=== PATIENT | male | born 1935 | race African-American/Black ===

== ENCOUNTER 2019-08-21 11:59 | Emergency (ER) | payer MEDICARE ==
--- NOTE | 2019-08-21 12:40 | Emergency Department Report ---
Blank Doc - Documentation Documentation: 83-year-old male that presents with not eating and fatigue. Daughter stated p julianne has some confusion. This initial assessment/diagnostic orders/clinical plan/treatment(s) is/are subject to change based on patient's health status, clinical progression and re- assessment by fellow clinical providers in the ED. Further treatment and workup at subsequent clinical providers discretion. Patient/guardians urged not to elope from the ED as their condition may be serious if not clinically assessed and managed. Initial orders include: 1- Patient sent to MAIN for further evaluation and treatment 2- labs 3- EKG 4- UA 5 CT head
--- NOTE | 2019-08-21 13:31 | XRay Report ---
CHEST 2 VIEWS INDICATION: Chest Pain. COMPARISON: None. FINDINGS: Support devices: None. Heart: Within normal limits. Pulmonary vasculature: Normal. Lungs/pleura: No acute air space or interstitial disease. No pneumothorax. Additional findings: Degenerative change in the spine. IMPRESSION: 1. No acute findings. Signer Name: David Hernandez MD Signed: 08/21/2019 1:27 PM Workstation Name: [id number]
[2019-08-21 14:22] LABS: Mean Corpuscular HGB Conc 33 % (32-34); Mean Corpuscular Volume 90 fl (84-94); Platelet Count 267 K/mm3 (140-440); Red Blood Count 3.99 M/mm3 (3.65-5.03); Red Cell Distribution Width 13.4 % (13.2-15.2)
[2019-08-21 14:31] LABS: INR 0.98 (0.87-1.13)
--- NOTE | 2019-08-21 14:52 | Cat Scan Report ---
NONENHANCED CT SCAN OF THE HEAD: INDICATION / CLINICAL INFORMATION: 83 years Male; confusion/fatigue. TECHNIQUE: Routine CT head without contrast. All CT scans at this location are performed using CT dos e reduction for ALARA by means of automated exposure control. COMPARISON: None. FINDINGS: BRAIN / INTRACRANIAL CONTENTS: No acute hemorrhage, mass effect, midline shift, hydrocephalus, or ac round [place], large territorial infarct. No chronic infarct or focal encephalomalacia. Periventricular low att enuation areas are seen probably due to microvascular faint angiopathy. Cerebral cerebellar and deep central involutions are seen. Temporal horn tips suggest moderate volume loss. CRANIOCERVICAL JUNCTION: No significant abnormality. ORBITS: No significant abnormality of visualized orbits. SINUSES / MASTOIDS: No significant abnormality of the visualized paranasal sinuses or mastoid air kamila ls. ADDITIONAL FINDINGS: None. IMPRESSION: No focal parenchymal lesion in the brain. Signer Name: Edward Amezcua MD Signed: 08/21/2019 2:47 PM Workstation Name: [id number]
[2019-08-21 15:04] LABS: Alanine Aminotransferase 11 units/L (7-56); Albumin 3.5 g/dL (3.9-5); BUN/Creatinine Ratio 51; Blood Urea Nitrogen 46 mg/dL (9-20); Calcium 9.5 mg/dL (8.4-10.2); Hemolysis Index 4
[2019-08-21 15:12] LABS: Bacteria,Urine 1+ /HPF (Negative); Bilirubin,Urine NEG (Negative); Blood,Urine MOD (Negative); Color,Urine Yellow (Yellow); Mucus,Urine FEW /HPF; Urobilinogen,Urine < 2.0 mg/dL (<2.0)
[2019-08-21 16:08] LABS: Eosinophils % (Manual) 0 % (0.0-4.3); Monocytes % (Manual) 0 % (0.0-7.3); Total Cells Counted 100
[2019-08-21 16:09] LABS: Platelet Estimate Consistent w Auto; RBC Morphology Normal
[2019-08-21] MEDS ORDERED: NITROFURANTOIN MONOHYD/M-CRYST 100 MG CAP PO ONE (18:33)
[2019-08-21] MEDS ORDERED: INSULIN REGULAR, HUMAN 100 UNITS/1 ML IV ONE ×2 (18:33→19:52)
[2019-08-21] MEDS ORDERED: SODIUM CHLORIDE 0.9% 250ML 250 ML IV ONE (18:34)
--- NOTE | 2019-08-21 18:34 | Emergency Department Report ---
ED General Adult HPI - General Chief complaint: Medical Clearance Stated complaint: DIABETIC/NO EATING OR DRINKING Time Seen by Provider: 08/21/19 12:38 Source: patient, family, RN notes reviewed, old records reviewed Mode of arrival: Wheelchair Limitations: Language Barrier - History of Present Illness Initial comments: Primary care doctors: Dr. Doyle, Dr. Martin The patient is an 83-year-old gentleman with a history of diabetes, hypertension, reportedly takes Lantus and Humulin. He is accompanied by his daughter, who requested to provide the history and translates for the patient. A formal logging crew supervisor was offered, and patient and family declined. As per the patient's daughter, patient has been having "memory issues", for the past 3-5 years. Over the past week or so, the patient has been eating less, and has been having worsening memory issues. The patient denies physical pain. The daughter indicates the patient is not eating as much as she typically eats. The daughter indicates that the patient's medications have not been changed or adjusted. As per the daughter, and the patient, there is no complaint of physical pain. There is no complaint of fever, vomiting, diarrhea, dysuria, chest pain, cough, and/or focal extremity weakness. Symptoms are intermittent, and worsening over the past week or so, symptoms including decreased appetite, and generalized confusion. The patient does not have recollection of this, he denies physical pain, and is asking to go home. -: Gradual Quality: other Consistency: other Improves with: other Worsens with: other - Related Data Previous Rx's Medication Instructions Recorded Last Taken Type Insulin Glargine,Hum.rec.anlog 20 unit SQ QHS #1 pen 08/21/13 Unknown Rx [Lantus Solostar] Insulin Lispro [Humalog] 5 unit SQ TIDAC #1 pen 08/21/13 Unknown Rx Losartan [Cozaar] 100 mg PO QDAY #30 tablet 08/21/13 Unknown Rx Nitrofurantoin Summers/M-Cryst 100 mg PO Q12HR #13 capsule 08/21/19 Unknown Rx [Macrobid CAP] Allergies Allergy/AdvReac Type Severity Reaction Status Date / Time No Known Allergies Allergy Unverified 08/21/13 10:19 ED Review of Systems ROS: Stated complaint: DIABETIC/NO EATING OR DRINKING Other details as noted in HPI Constitutional: denies: fever Eyes: denies: eye discharge ENT: denies: congestion Respiratory: denies: cough, wheezing Cardiovascular: denies: chest pain, syncope Gastrointestinal: denies: abdominal pain, nausea, vomiting, diarrhea, con stipation, hematemesis, melena, hematochezia Musculoskeletal: denies: back pain Skin: denies: lesions Neurological: confusion Hematological/Lymphatic: denies: easy bleeding ED Past Medical Hx - Past Medical History Previous Medical History?: Yes Hx Diabetes: Yes - Social History Smoking Status: Never Smoker - Medications Home Medications: Home Medications Medication Instructions Recorded Confirmed Last Taken Type Insulin Glargine,Hum.rec.anlog 20 unit SQ QHS #1 pen 08/21/13 Unknown Rx [Lantus Solostar] Insulin Lispro [Humalog] 5 unit SQ TIDAC #1 pen 08/21/13 Unknown Rx Losartan [Cozaar] 100 mg PO QDAY #30 tablet 08/21/13 Unknown Rx Nitrofurantoin Summers/M-Cryst 100 mg PO Q12HR #13 capsule 08/21/19 Unknown Rx [Macrobid CAP] ED Physical Exam - General Limitations: Language Barrier, Other (during the entire history and physical examination, I am mixer whipped topping and escorted by nurse Prieto Matta) General appearance: alert, in no apparent distress, other (the patient is alert to name, location, and is able to identify his family member) - Head Head exam: Present: atraumatic, normocephalic - Eye Eye exam: Absent: normal appearance (chronic appearing cataract noted on the right eye. Cataract noted on the left eye.) Pupils: Present: other (visual acuity intact to finger counting and color perception at a close distance) - ENT ENT exam: Present: normal exam, mucous membranes moist, normal external ear exam - Neck Neck exam: Present: normal inspection, full ROM - Respiratory Respiratory exam: Present: normal lung sounds bilaterally. Absent: respiratory distress - Cardiovascular Cardiovascular Exam: Present: regular rate, normal rhythm, normal heart sounds. Absent: bradycardia, tachycardia, irregular rhythm, systolic murmur, diastolic murmur, rubs, gallop - GI/Abdominal GI/Abdominal exam: Present: soft. Absent: distended, tenderness, guarding, rebound, rigid, pulsatile mass - Rectal Rectal exam: Present: deferred - Extremities Exam Extremities exam: Present: normal inspection, full ROM, other (2+ pulses noted in the bilateral upper and lower extremities. The pelvis is stable. There is no long bony tenderness. The muscular compartments are soft. There is no redness, pus, streaking or erythema.). Absent: pedal edema, calf tenderness - Back Exam Back exam: Present: normal inspection - Neurological Exam Neurological exam: Present: alert, normal gait, other (there is no facial droop. The tongue is midline. Extraocular movements are intact bilaterally. Speaking in full sentences. Hearing is grossly intact. 5 out of 5 strength bilateral upper and lower extremities. Sensation is intact to light touch bilateral upper and lower extremities.). Absent: motor sensory deficit - Psychiatric Psychiatric exam: Present: normal affect, normal mood - Skin Skin exam: Present: warm, dry, intact, normal color. Absent: rash ED Course Vital Signs 08/21/19 08/21/19 08/21/19 12:16 18:05 18:24 Temperature 98.2 F Pulse Rate 85 58 L 93 H Respiratory 18 16 16 Rate Blood Pressure 103/54 Blood Pressure 101/48 [Right] O2 Sat by Pulse 96 96 96 Oximetry 08/21/19 08/21/19 08/21/19 18:31 18:45 19:01 Temperature Pulse Rate 80 76 76 Respiratory 16 15 18 Rate Blood Pressure 165/76 165/76 165/76 Blood Pressure [Right] O2 Sat by Pulse 97 98 99 Oximetry 08/21/19 08/21/19 08/21/19 19:15 19:31 19:45 Temperature Pulse Rate 84 80 78 Respiratory 19 11 L 20 Rate Blood Pressure 163/76 190/79 190/79 Blood Pressure [Right] O2 Sat by Pulse 97 96 97 Oximetry 08/21/19 08/21/19 08/21/19 20:01 20:15 20:31 Temperature Pulse Rate 76 74 78 Respiratory 19 23 15 Rate Blood Pressure 163/76 163/76 163/76 Blood Pressure [Right] O2 Sat by Pulse 97 98 97 Oximetry 08/21/19 08/21/19 08/21/19 20:45 21:01 21:15 Temperature Pulse Rate 74 77 77 Respiratory 21 26 H 21 Rate Blood Pressure 163/76 163/76 136/75 Blood Pressure [Right] O2 Sat by Pulse 95 97 93 Oximetry - Reevaluation(s) Reevaluation #1: 08/21/19 19:24 Differential diagnosis, including but not limited to: Dementia, intracranial hemorrhage/acute lesion, pneumonia, urinary tract infection, thyroid derangement Assessment and plan: 83-year-old gentleman with daughter and , family provides history of 3-5 years of memory issues, now with complaint of worsening memory issues, and not eating as much as she typically eats. The patient is pleasant, calm and cooperative, he is afebrile with reassuring vital signs, tolerating liquid feeds, and answers many questions, including being able to list both of his insulin medications, giving his full name, identifying his daughter by name, and indicating that he knows he is at the hospital. He does this in Korean. He denies physical pain at this time. His laboratory studies are reviewed and appreciated. Mild dehydration and hyperglycemia noted, questionable cystitis suggested on urinary analysis. Given reported history of memory issues for years, this is likely undiagnosed or inadequately managed dementia. Patient will be given IV fluids, insulin, Macrobid, he is observed in this department for hours without clinical decompensation. Extensive discussion had with daughter regarding need to follow up with outpatient primary care doctor, we will need to clarify goals of care, and his memory issues can be further just as an outpatient. At the moment, the patient does not have an emergent medical condition that would require hospitalization. Reevaluation #2: 08/21/19 20:50 Accu-Chek improved to 238. Patient in no acute distress. Patient observed in this department for nearly 9 hours without clinical decompensation. Poni to follow-up with his outpatient primary care doctor for presumed dementia, and to clarify long-term goals of care. ED Medical Decision Making - Lab Data Result diagrams: 08/21/19 13:43 08/21/19 13:43 Vital Signs 08/21/19 08/21/19 12:16 18:05 Temperature 98.2 F Pulse Rate 85 58 L Respiratory 18 16 Rate Blood Pressure 103/54 Blood Pressure 101/48 [Right] O2 Sat by Pulse 96 96 Oximetry Lab Results 08/21/19 08/21/19 08/21/19 Range/Units 12:52 13:43 13:43 WBC 12.2 H (4.5-11.0) K/mm3 RBC 3.99 (3.65-5.03) M/mm3 Hgb 12.0 (11.8-15.2) gm/dl Hct 36.0 (35.5-45.6) % MCV 90 (84-94) fl MCH 30 (28-32) pg MCHC 33 (32-34) % RDW 13.4 (13.2-15.2) % Plt Count 267 (140-440) K/mm3 Add Manual Diff Complete Total Counted 100 Seg Neutrophils % [facility] Licensed Practical Nurse Seg Neuts % (Manual) 96.0 H (40.0-70.0) % Band Neutrophils % 0 % Lymphocytes % (Manual) 3.0 L (13.4-35.0) % Reactive Lymphs % (Man) 0 % Monocytes % (Manual) 0 (0.0-7.3) % Eosinophils % (Manual) 0 (0.0-4.3) % Basophils % (Manual) 1.0 (0.0-1.8) % Metamyelocytes % 0 % Myelocytes % 0 % Promyelocytes % 0 % Blast Cells % 0 % Nucleated RBC % Not Reportable Seg Neutrophils # Man 11.7 H (1.8-7.7) K/mm3 Band Neutrophils # 0.0 K/mm3 Lymphocytes # (Manual) 0.4 L (1.2-5.4) K/mm3 Abs React Lymphs (Man) 0.0 K/mm3 Monocytes # (Manual) 0.0 (0.0-0.8) K/mm3 Eosinophils # (Manual) 0.0 (0.0-0.4) K/mm3 Basophils # (Manual) 0.1 (0.0-0.1) K/mm3 Metamyelocytes # 0.0 K/mm3 Myelocytes # 0.0 K/mm3 Promyelocytes # 0.0 K/mm3 Blast Cells # 0.0 K/mm3 WBC Morphology Not Reportable Hypersegmented Neuts Not Reportable Hyposegmented Neuts Not Reportable Hypogranular Neuts Not Reportable Smudge Cells Not Reportable Toxic Granulation Not Reportable Toxic Vacuolation Not Reportable Dohle Bodies Not Reportable Pelger-Huet Anomaly Not Reportable Michael Rods Not Reportable Platelet Estimate Consistent w auto Clumped Platelets Not Reportable Plt Clumps, EDTA Not Reportable Large Platelets Not Reportable Giant Platelets Not Reportable Platelet Satelliting Not Reportable Plt Morphology Comment Not Reportable RBC Morphology Normal Dimorphic RBCs Not Reportable Polychromasia Not Reportable Hypochromasia Not Reportable Poikilocytosis Not Reportable Anisocytosis Not Reportable Microcytosis Not Reportable Macrocytosis Not Reportable Spherocytes Not Reportable Pappenheimer Bodies Not Reportable Sickle Cells Not Reportable Target Cells Not Reportable Tear Drop Cells Not Reportable Ovalocytes Not Reportable Helmet Cells Not Reportable [place] Bodies Not Reportable Liberty Rings Not Reportable [place] Cells Not Reportable Bite Cells Not Reportable Crenated Cell Not Reportable Elliptocytes Not Reportable Acanthocytes (Spur) Not Reportable Rouleaux Not Reportable Hemoglobin C Crystals Not Reportable Schistocytes Not Reportable Malaria parasites Not Reportable Natalio Bodies Not Reportable Hem Pathologist Commnt No PT 13.1 (12.2-14.9) Sec. INR 0.98 (0.87-1.13) APTT 32.0 (24.2-36.6) Sec. VBG pH (7.320-7.420) Sodium (137-145) mmol/L Potassium (3.6-5.0) mmol/L Chloride (98-107) mmol/L Carbon Dioxide (22-30) mmol/L Anion Gap mmol/L BUN (9-20) mg/dL Creatinine (0.8-1.5) mg/dL Estimated GFR ml/min BUN/Creatinine Ratio % Glucose (75-100) mg/dL POC Glucose 408 H (70-105) Calcium (8.4-10.2) mg/dL Magnesium (1.7-2.3) mg/dL Total Bilirubin (0.1-1.2) mg/dL AST (5-40) units/L ALT (7-56) units/L Alkaline Phosphatase (35-129) units/L Total Creatine Kinase (55-170) units/L Troponin T (0.00-0.029) ng/mL Total Protein (6.3-8.2) g/dL Albumin (3.9-5) g/dL Albumin/Globulin Ratio % Urine Color (Yellow) Urine Turbidity (Clear) Urine pH (5.0-7.0) Ur Specific [place] (1.003-1.030) Urine Protein (Negative) mg/dL Urine Glucose (UA) (Negative) mg/dL Urine Ketones (Negative) mg/dL Urine Blood (Negative) Urine Nitrite (Negative) Urine Bilirubin (Negative) Urine Urobilinogen (<2.0) mg/dL Ur Leukocyte Esterase (Negative) Urine WBC (Auto) (0.0-6.0) /HPF Urine RBC (Auto) (0.0-6.0) /HPF U Epithel Cells (Auto) (0-13.0) /HPF Urine Bacteria (Auto) (Negative) /HPF Urine Mucus /HPF Urine Yeast (Budding) /HPF 08/21/19 08/21/19 08/21/19 Range/Units 13:43 13:43 15:55 WBC (4.5-11.0) K/mm3 RBC (3.65-5.03) M/mm3 Hgb (11.8-15.2) gm/dl Hct (35.5-45.6) % MCV (84-94) fl MCH (28-32) pg MCHC (32-34) % RDW (13.2-15.2) % Plt Count (140-440) K/mm3 Add Manual Diff Total Counted Seg Neutrophils % Seg Neuts % (Manual) (40.0-70.0) % Band Neutrophils % % Lymphocytes % (Manual) (13.4-35.0) % Reactive Lymphs % (Man) % Monocytes % (Manual) (0.0-7.3) % Eosinophils % (Manual) (0.0-4.3) % Basophils % (Manual) (0.0-1.8) % Metamyelocytes % % Myelocytes % % Promyelocytes % % Blast Cells % % Nucleated RBC % Seg Neutrophils # Man (1.8-7.7) K/mm3 Band Neutrophils # K/mm3 Lymphocytes # (Manual) (1.2-5.4) K/mm3 Abs React Lymphs (Man) K/mm3 Monocytes # (Manual) (0.0-0.8) K/mm3 Eosinophils # (Manual) (0.0-0.4) K/mm3 Basophils # (Manual) (0.0-0.1) K/mm3 Metamyelocytes # K/mm3 Myelocytes # K/mm3 Promyelocytes # K/mm3 Blast Cells # K/mm3 WBC Morphology Hypersegmented Neuts Hyposegmented Neuts Hypogranular Neuts Smudge Cells Toxic Granulation Toxic Vacuolation Dohle Bodies Pelger-Huet Anomaly Michael Rods Platelet Estimate Clumped Platelets Plt Clumps, EDTA Large Platelets Giant Platelets Platelet Satelliting Plt Morphology Comment RBC Morphology Dimorphic RBCs Polychromasia Hypochromasia Poikilocytosis Anisocytosis Microcytosis Macrocytosis Spherocytes Pappenheimer Bodies Sickle Cells Target Cells Tear Drop Cells Ovalocytes Helmet Cells [place] Bodies Liberty Rings Risa Cells Bite Cells Crenated Cell Elliptocytes Acanthocytes (Spur) Rouleaux Hemoglobin C Crystals Schistocytes Malaria parasites Natalio Bodies Hem Pathologist Commnt PT (12.2-14.9) Sec. INR (0.87-1.13) APTT (24.2-36.6) Sec. VBG pH 7.433 H (7.320-7.420) Sodium 135 L (137-145) mmol/L Potassium 4.8 (3.6-5.0) mmol/L Chloride 93.0 L (98-107) mmol/L Carbon Dioxide 26 (22-30) mmol/L Anion Gap 21 mmol/L BUN 46 H (9-20) mg/dL Creatinine 0.9 (0.8-1.5) mg/dL Estimated GFR > 60 ml/min BUN/Creatinine Ratio 51 % Glucose 458 H (75-100) mg/dL POC Glucose (70-105) Calcium 9.5 (8.4-10.2) mg/dL Magnesium (1.7-2.3) mg/dL Total Bilirubin 0.40 (0.1-1.2) mg/dL AST 12 (5-40) units/L ALT 11 (7-56) units/L Alkaline Phosphatase 75 (35-129) units/L Total Creatine Kinase (55-170) units/L Troponin T < 0.010 < 0.010 (0.00-0.029) ng/mL Total Protein 7.1 (6.3-8.2) g/dL Albumin 3.5 L (3.9-5) g/dL Albumin/Globulin Ratio 1.0 % Urine Color (Yellow) Urine Turbidity (Clear) Urine pH (5.0-7.0) Ur Specific [place] (1.003-1.030) Urine Protein (Negative) mg/dL Urine Glucose (UA) (Negative) mg/dL Urine Ketones (Negative) mg/dL Urine Blood (Negative) Urine Nitrite (Negative) Urine Bilirubin (Negative) Urine Urobilinogen (<2.0) mg/dL Ur Leukocyte Esterase (Negative) Urine WBC (Auto) (0.0-6.0) /HPF Urine RBC (Auto) (0.0-6.0) /HPF U Epithel Cells (Auto) (0-13.0) /HPF Urine Bacteria (Auto) (Negative) /HPF Urine Mucus /HPF Urine Yeast (Budding) /HPF 08/21/19 08/21/19 Range/Units 18:53 Unknown WBC (4.5-11.0) K/mm3 RBC (3.65-5.03) M/mm3 Hgb (11.8-15.2) gm/dl Hct (35.5-45.6) % MCV (84-94) fl MCH (28-32) pg MCHC (32-34) % RDW (13.2-15.2) % Plt Count (140-440) K/mm3 Add Manual Diff Total Counted Seg Neutrophils % Seg Neuts % (Manual) (40.0-70.0) % Band Neutrophils % % Lymphocytes % (Manual) (13.4-35.0) % Reactive Lymphs % (Man) % Monocytes % (Manual) (0.0-7.3) % Eosinophils % (Manual) (0.0-4.3) % Basophils % (Manual) (0.0-1.8) % Metamyelocytes % % Myelocytes % % Promyelocytes % % Blast Cells % % Nucleated RBC % Seg Neutrophils # Man (1.8-7.7) K/mm3 Band Neutrophils # K/mm3 Lymphocytes # (Manual) (1.2-5.4) K/mm3 Abs React Lymphs (Man) K/mm3 Monocytes # (Manual) (0.0-0.8) K/mm3 Eosinophils # (Manual) (0.0-0.4) K/mm3 Basophils # (Manual) (0.0-0.1) K/mm3 Metamyelocytes # K/mm3 Myelocytes # K/mm3 Promyelocytes # K/mm3 Blast Cells # K/mm3 WBC Morphology Hypersegmented Neuts Hyposegmented Neuts Hypogranular Neuts Smudge Cells Toxic Granulation Toxic Vacuolation Dohle Bodies Pelger-Huet Anomaly Michael Rods Platelet Estimate Clumped Platelets Plt Clumps, EDTA Large Platelets Giant Platelets Platelet Satelliting Plt Morphology Comment RBC Morphology Dimorphic RBCs Polychromasia Hypochromasia Poikilocytosis Anisocytosis Microcytosis Macrocytosis Spherocytes Pappenheimer Bodies Sickle Cells Target Cells Tear Drop Cells Ovalocytes Helmet Cells [place] Bodies [place] Rings [place] Cells Bite Cells Crenated Cell Elliptocytes Acanthocytes (Spur) Rouleaux Hemoglobin C Crystals Schistocytes Malaria parasites Natalio Bodies Hem Pathologist Commnt PT (12.2-14.9) Sec. INR (0.87-1.13) APTT (24.2-36.6) Sec. VBG pH (7.320-7.420) Sodium (137-145) mmol/L Potassium (3.6-5.0) mmol/L Chloride (98-107) mmol/L Carbon Dioxide (22-30) mmol/L Anion Gap mmol/L BUN (9-20) mg/dL Creatinine (0.8-1.5) mg/dL Estimated GFR ml/min BUN/Creatinine Ratio % Glucose (75-100) mg/dL POC Glucose (70-105) Calcium (8.4-10.2) mg/dL Magnesium 2.30 (1.7-2.3) mg/dL Total Bilirubin (0.1-1.2) mg/dL AST (5-40) units/L ALT (7-56) units/L Alkaline Phosphatase (35-129) units/L Total Creatine Kinase 48 L (55-170) units/L Troponin T (0.00-0.029) ng/mL Total Protein (6.3-8.2) g/dL Albumin (3.9-5) g/dL Albumin/Globulin Ratio % Urine Color Yellow (Yellow) Urine Turbidity Slightly-cloudy (Clear) Urine pH 5.0 (5.0-7.0) Ur Specific [place] 1.024 (1.003-1.030) Urine Protein 100 mg/dl (Negative) mg/dL Urine Glucose (UA) >=500 (Negative) mg/dL Urine Ketones Tr (Negative) mg/dL Urine Blood Mod (Negative) Urine Nitrite Neg (Negative) Urine Bilirubin Neg (Negative) Urine Urobilinogen < 2.0 (<2.0) mg/dL Ur Leukocyte Esterase Sm (Negative) Urine WBC (Auto) 32.0 H (0.0-6.0) /HPF Urine RBC (Auto) 13.0 (0.0-6.0) /HPF U Epithel Cells (Auto) < 1.0 (0-13.0) /HPF Urine Bacteria (Auto) 1+ (Negative) /HPF Urine Mucus Few /HPF Urine Yeast (Budding) 1+ /HPF - EKG Data -: EKG Interpreted by Ny EKG shows normal: sinus rhythm Rate: normal - EKG Data When compared to previous EKG there are: previous EKG unavailable 08/21/19 19:23 No prior EKG is available for comparison. The EKG shows a sinus rhythm, 69 bpm, normal axis, QTC is 454 ms, there is left ventricular hypertrophy, nonspecific ST abnormality. There is no endorsement of chest pain, the EKG is abnormal. This EKG is not consistent with STEMI - Radiology Data Radiology results: report reviewed, image reviewed Print Report Referring Physician: JANICE WELLS Patient Name: BRYANT JAMISON Date of : 1935 Sex: Male Report Date: 2019-08-21 Report Status: Finalized Findings [facility] [address] [place] [address] Cat Scan Report Signed Patient: BRYANT JAMISON MR#: [id number] 63 : 1935 Acct:[id number] Age/Sex: 83 / M ADM Date: 08/21/19 Loc: ED Attending Dr: Ordering Physician: JANICE WELLS NP Date of Service: 08/21/19 Procedure(s): CT head/brain wo con Accession Number(s): [id number] cc: JANICE WELLS NP NONENHANCED CT SCAN OF THE HEAD: INDICATION / CLINICAL INFORMATION: 83 years Male; confusion/fatigue. TECHNIQUE: Routine CT head without contrast. All CT scans at this location are performed using CT dose reduction for ALARA by means of automated exposure control. COMPARISON: None. FINDINGS: BRAIN / INTRACRANIAL CONTENTS: No acute hemorrhage, mass effect, midline shift, hydrocephalus, or acute, large territorial infarct. No chronic infarct or focal encephalomalacia. Periventricular low attenuation areas are seen probably due to microvascular faint angiopathy. Cerebral cerebellar and deep central involutions are seen. Temporal horn tips suggest moderate volume loss. CRANIOCERVICAL JUNCTION: No significant abnormality. ORBITS: No significant abnormality of visualized orbits. SINUSES / MASTOIDS: No significant abnormality of the visualized paranasal sinuses or mastoid air cells. ADDITIONAL FINDINGS: None. IMPRESSION: No focal parenchymal lesion in the brain. Signer Name: Edward Amezcua MD Signed: 08/21/2019 2:47 PM Workstation Name: [id number] Transcribed By: BS Dictated By: Edward Berg MD Electronically Authenticated By: Edward Berg MD Signed Date/Time: 08/21/19 1447 DD/ 1442 Print Report Referring Physician: JANICE WELLS Patient Name: BRYANT JAMISON Date of : 1935 Sex: Male Report Date: 2019-08-21 Report Status: [place] [address] XRay Report Signed Patient: BRYANT JAMISON MR#: [id number] 63 : 1935 Acct:[id number] Age/Sex: 83 / M ADM Date: 08/21/19 Loc: ED Attending Dr: Ordering Physician: JANICE WELLS NP Date of Service: 08/21/19 Procedure(s): XR chest routine 2V Accession Number(s): [id number] cc: JANICE WELLS NP Fluoro Time In Minutes: CHEST 2 VIEWS INDICATION: Chest Pain. COMPARISON: None. FINDINGS: Support devices: None. Heart: Within normal limits. Pulmonary vasculature: Normal. Lungs/pleura: No acute air space or interstitial disease. No pneumothorax. Additional findings: Degenerative change in the spine. IMPRESSION: 1. No acute findings. Signer Name: Lolis Adams MD Signed: 08/21/2019 1:27 PM Workstation Name: [id number] Transcribed By: REF Dictated By: LOLIS ADAMS MD Electronically Authenticated By: LOLIS ADAMS MD Signed Date/Time: 08/21/19 1327 DD/ 1326 Critical care attestation.: If time is entered above; I have spent that time in minutes in the direct care of this critically ill patient, excluding procedure time. ED Disposition Clinical Impression: Hyperglycemia, Memory changes Disposition: DC-01 TO HOME OR SELFCARE Is pt being admited?: No Does the pt Need Aspirin: No Condition: Stable Instructions: Dementia (ED) Additional Instructions: As we discussed, patient likely has dementia, which is typically in irreversible condition that affects memory, cognition. We recommended the patient follow up with his outpatient primary care doctor within the next 7 days for further evaluation and management of his dementia. We recommend that the patient administer half of the insulin doses that he typically administers, given that he is reportedly not eating or drinking as much as she typically eats or drink. Cultures were sent today, and results will be available in the next 3-5 days, please have your primary care doctor contact the medical records department to obtain culture results. Take the antibiotics as directed. Please return to the emergency room right away with projectile vomiting, change in mental status, confusion, inability to tolerate liquid feeds. For the time being, the patient should not drive or operate motor vehicles, he should have an adult roofing supervisor around him at all times, and he should not be exposed to sharp objects, or electrical outlets. Patient should avoid sedating medications and alcohol consumption. Prescriptions: Nitrofurantoin Summers/M-Cryst [Macrobid CAP] 100 mg PO Q12HR #13 capsule Referrals: TERA BOCANEGRA [Other] - 3-5 Days ROBI DOYLE MD [Referring] - 3-5 Days KAMI MARTIN MD [Referring] - 3-5 Days
[2019-08-21 21:40] VITALS: BP 136/75
== END 2019-08-21 21:40 | disposition home or self-care (01) ==
LOC: ED 11:59
DX: E11.65 Type 2 diabetes mellitus with hyperglycemia (principal); R41.3 Other amnesia; Z79.899 Other long term (current) drug therapy
CPT/HCPCS: 36415; 70450; 71046; 80053; 81001; 82550; 82805; 82962; 83735; 84443; 84484; 85007; 85025; 85610; 85730; 87076; 87086; 87186; 93005; 93010; 96374; 96376; 99285; J7050; 80320; G0480; J1815

== ENCOUNTER 2019-08-28 13:00 | Inpatient (IN) | payer MEDICARE ==
[2019-08-28 13:35] LABS: Hematocrit 37.7 % (35.5-45.6); Hemoglobin 11.9 gm/dl (11.8-15.2); Mean Corpuscular HGB Conc 32 % (32-34); Mean Corpuscular Volume 95 fl (84-94); Platelet Count 385 K/mm3 (140-440); Red Blood Count 3.99 M/mm3 (3.65-5.03); Red Cell Distribution Width 13.9 % (13.2-15.2)
[2019-08-28] MEDS ORDERED: SODIUM CHLORIDE 0.9% 1000 ML 1,000 ML IV ONE (14:10)
[2019-08-28 14:11] LABS: Calcium 9.6 mg/dL (8.4-10.2)
[2019-08-28] MEDS ORDERED: CEFEPIME/NS 2 GM/100 ML 2 GM/100 ML BAG IV ONE (14:24)
--- NOTE | 2019-08-28 14:30 | XRay Report ---
CHEST 1 VIEW INDICATION: weakness. COMPARISON: 08/21/2019 FINDINGS: Support devices: None. Heart: Within normal limits. Lungs/Pleura: No acute air space or interstitial disease. Additional findings: There are multiple tiny linear soft tissue densities within the posterior thorac ic soft tissues. The etiology of these are unclear. They may represent tiny foreign bodies. These are unchanged since the exam 7 days ago. IMPRESSION: No acute findings. Signer Name: Carlyle Go Jr, MD Signed: 08/28/2019 2:25 PM Workstation Name: [id number]
[2019-08-28] MEDS ORDERED: SODIUM CHLORIDE 0.9% 1000 ML IV SOLN IV ONE (14:46)
[2019-08-28 14:48] LABS: Total Cells Counted 100
[2019-08-28 14:49] LABS: Anisocytosis Few; Basophils % (Manual) 0 % (0.0-1.8); Burr Cells Few; Eosinophils % (Manual) 0 % (0.0-4.3); Platelet Estimate Consistent w Auto
[2019-08-28] MEDS ORDERED: INSULIN REGULAR, HUMAN 100 UNITS in SODIUM CHLORIDE 0.9% 99 ML IV SCH ×4 (15:00→23:00)
[2019-08-28] MEDS ORDERED: CALCIUM GLUCONATE 1,000 MG in SODIUM CHLORIDE 0.9% 100 ML IV ONE (15:00)
--- NOTE | 2019-08-28 15:17 | Emergency Department Report ---
ED General Adult HPI - General Chief complaint: Hyperglycemia Stated complaint: HYPERGLYCEMIA Time Seen by Provider: 08/28/19 13:12 Source: EMS Mode of arrival: Ambulatory Limitations: No Limitations - History of Present Illness Initial comments: 83-year-old male with history of diabetes presents to ED by EMS. Family states patient has not been eating, and has been having tremors in his arm. Since patient has not been eating, family has been giving him protein shakes and withholding his insulin. Patient was seen in this ED approximately 1 week ago and diagnosed with hyperglycemia and UTI, however he was discharged from the ED at that time as he was not in DKA and glucose improved. Patient speaks Mohawk, family at bedside translating for patient. He is A&O 3. Denies fever, vomiting. Patient has no complaints, denies pain. -: days(s) (3) Consistency: constant Improves with: none Worsens with: none Associated Symptoms: denies: chest pain, fever/chills, headaches, nausea/vomiting - Related Data Previous Rx's Medication Instructions Recorded Last Taken Type Insulin Glargine,Hum.rec.anlog 20 unit SQ QHS #1 pen 08/21/13 Unknown Rx [Lantus Solostar] Insulin Lispro [Humalog] 5 unit SQ TIDAC #1 pen 08/21/13 Unknown Rx Losartan [Cozaar] 100 mg PO QDAY #30 tablet 08/21/13 Unknown Rx Allergies Allergy/AdvReac Type Severity Reaction Status Date / Time No Known Allergies Allergy Unverified 08/21/13 10:19 ED Review of Systems ROS: Stated complaint: HYPERGLYCEMIA Other details as noted in HPI Comment: Unobtainable due to pts medical conditions Constitutional: denies: fever Respiratory: denies: cough Cardiovascular: denies: chest pain Gastrointestinal: denies: abdominal pain, vomiting Neurological: denies: headache ED Past Medical Hx - Past Medical History Hx Diabetes: Yes - Social History Smoking Status: Never Smoker Substance Use Type: None - Medications Home Medications: Home Medications Medication Instructions Recorded Confirmed Last Taken Type Insulin Glargine,Hum.rec.anlog 20 unit SQ QHS #1 pen 08/21/13 08/28/19 Unknown Rx [Lantus Solostar] Insulin Lispro [Humalog] 5 unit SQ TIDAC #1 pen 08/21/13 08/28/19 Unknown Rx Losartan [Cozaar] 100 mg PO QDAY #30 tablet 08/21/13 08/28/19 Unknown Rx ED Physical Exam - General Limitations: No Limitations General appearance: alert, in no apparent distress - Head Head exam: Present: atraumatic, normocephalic - Eye Eye exam: Present: normal appearance, EOMI - ENT ENT exam: Present: mucous membranes moist - Neck Neck exam: Present: normal inspection - Respiratory Respiratory exam: Present: normal lung sounds bilaterally. Absent: respiratory distress - Cardiovascular Cardiovascular Exam: Present: regular rate, normal rhythm - GI/Abdominal GI/Abdominal exam: Present: soft, tenderness (lower abdominal tenderness present). Absent: distended - Extremities Exam Extremities exam: Present: normal inspection - Neurological Exam Neurological exam: Present: alert, oriented X3 - Psychiatric Psychiatric exam: Present: normal affect, normal mood - Skin Skin exam: Present: warm, dry, intact, normal color ED Course Vital Signs 08/28/19 13:27 Temperature 97.8 F Pulse Rate 99 H Respiratory 23 Rate Blood Pressure 145/64 [Right] O2 Sat by Pulse 99 Oximetry ED Medical Decision Making - Lab Data Result diagrams: 08/28/19 13:23 08/28/19 14:33 - EKG Data -: EKG Interpreted by Ma EKG shows normal: sinus rhythm, axis, intervals, QRS complexes, ST-T waves Rate: normal - EKG Data Interpretation: no acute changes - Radiology Data Radiology results: report reviewed, image reviewed - Medical Decision Making 83 yo M presents to ED in DKA. Glucose 797 with anion gap of 38 and bicarb of 11. Potassium slightly elevated at 5.6. EKG shows no ST changes. Calcium gluconate given. IV fluids and insulin drip initiated to treat the hyperkalemia and DKA. WBCs 23, however lactic acid normal. Cultures obtained, cefepime given. UA shows mild UTI. CXR normal. Vital signs stable. Pt will be admitted to hospitalist for further management. - Differential Diagnosis DKA, UTI, infection Critical Care Time: Yes Critical care time in (mins) excluding proc time.: 35 Critical care attestation.: If time is entered above; I have spent that time in minutes in the direct care of this critically ill patient, excluding procedure time. Critical Care Time: 35 minutes ED Disposition Clinical Impression: Acute renal failure, UTI (urinary tract infection) Diabetic ketoacidosis Qualifiers: Diabetes mellitus type: type 1 Disposition: DC-09 OP ADMIT IP TO THIS HOSP Is pt being admited?: Yes Condition: Stable Time of Disposition: 15:18
--- NOTE | 2019-08-28 15:23 | History and Physical Report ---
History of Present Illness Chief complaint: He has not been eating History of present illness: 83-year-old male with DM, dementia presents to ED for evaluation. Patient is confused and lethargic and is unable to provide history. Patient family is at bedside during exam and interview and provide history. As per family the patient has experienced decreased appetite and decreased interaction with family over the past 4 weeks with worsening symptoms over the past 1 week. Patient has increased bedbound status and decreased ambulation due to generalized weakness. The patient currently requires 5 out of 6 assistance with activities of daily living. EMS was notified today and upon arrival the patient was found to be in distress and subsequently transported to [facility] for further care and evaluation. Patient seen and evaluated in the ED. Patient lab and imaging studies reviewed. Patient found to have diabetic ketoacidosis, metabolic encephalopathy, sepsis, metabolic acidosis. Patient admitted to ICU and initiated on sepsis and DKA protocols respectively. Patient admitted to ICU for medical stabilization due to high risk for decompensation. Advanced care planning conducted in ED. Disease education conducted. Patient family acknowledge understanding and agreement with care plan. Past History Past Medical History: diabetes, other (See HPI) Past Surgical History: No surgical history, Other (Reviewed) Social history: , lives with family. denies: smoking, alcohol abuse, prescription drug abuse Family history: hypertension Medications and Allergies Allergies Allergy/AdvReac Type Severity Reaction Status Date / Time No Known Allergies Allergy Unverified 08/21/13 10:19 Home Medications Medication Instructions Recorded Confirmed Last Taken Type Insulin Glargine,Hum.rec.anlog 20 unit SQ QHS #1 pen 08/21/13 Unknown Rx [Lantus Solostar] Insulin Lispro [Humalog] 5 unit SQ TIDAC #1 pen 08/21/13 Unknown Rx Losartan [Cozaar] 100 mg PO QDAY #30 tablet 08/21/13 Unknown Rx Active Meds: Active Medications Insulin Human Regular 100 (units/ Sodium Chloride) 100 mls @ 1 mls/hr IV TITR SUJATA; Protocol Calcium Gluconate 1,000 mg/ (Sodium Chloride) 110 mls @ 220 mls/hr IV ONCE ONE Stop: 08/28/19 15:29 Last Admin: 08/28/19 15:21 Dose: 220 mls/hr Documented by: Review of Systems ROS unobtainable: due to mental status Exam - Constitutional Vitals: Temp Pulse Resp BP Pulse Ox 97.8 F 99 H 23 145/64 99 08/28/19 13:27 08/28/19 13:27 08/28/19 13:27 08/28/19 13:27 08/28/19 13:27 General appearance: Present: severe distress, cachectic - EENT Eyes: Present: PERRL, miosis ENT: hearing intact, clear oral mucosa - Neck Neck: Present: supple, normal ROM - Respiratory Respiratory: bilateral: diminished, rhonchi - Cardiovascular Rhythm: other (Tachycardia) Heart Sounds: Present: S1 & S2. Absent: rub, click - Extremities Extremities: no ischemia Peripheral Pulses: abnormal (Capillary refill greater than 3.5 seconds) - Abdominal General gastrointestinal: Present: soft, non-distended - Integumentary Integumentary: Present: clear, dry, clammy, decreased turgor - Musculoskeletal Musculoskeletal: generalized weakness - Psychiatric Psychiatric: no appropriate mood/affect, no intact judgment & insight, no memory intact - Neurologic Neurologic: CNII-XII intact, no focal deficits, moves all extremities, no gait normal Results - Labs CBC & Chem 7: 08/28/19 13:23 08/28/19 14:33 Labs: Abnormal lab results 08/28/19 08/28/19 08/28/19 Range/Units 13:23 13:23 13:23 WBC 23.1 H (4.5-11.0) K/mm3 MCV 95 H (84-94) fl Seg Neuts % (Manual) 96.0 H (40.0-70.0) % Lymphocytes % (Manual) 2.0 L (13.4-35.0) % Seg Neutrophils # Man 22.2 H (1.8-7.7) K/mm3 Lymphocytes # (Manual) 0.5 L (1.2-5.4) K/mm3 VBG pH 7.177 L* (7.320-7.420) Potassium 5.6 H (3.6-5.0) mmol/L Chloride 95.0 L (98-107) mmol/L Carbon Dioxide 11 L (22-30) mmol/L BUN 66 H (9-20) mg/dL Glucose 797 H* (75-100) mg/dL Assessment and Plan - Patient Problems (1) Sepsis Current Visit: Yes Status: Acute Plan to address problem: Admit to ICU: Initiate sepsis protocol: IV fluid resuscitation therapy, CBC, CMP, blood culture, urinalysis, chest x-ray, serial lactic acid level, monitor urine output every shift, IV pressor support as clinically indicated to maintain mean arterial pressure greater than or equal to 60. The high probability of a clinically significant, sudden or life threatening deterioration of the [cardiac, renal, neuro, endocrine] system(s) required my full and direct attention, intervention and personal management. The aggregate critical care time was [95] minutes. This time is in addition to time spent performing reported procedures but includes the following: [x] Data Review and interpretation [x] Patient assessment and monitoring of vital signs [x] Documentation [x] Medication orders and management (2) Metabolic encephalopathy Current Visit: Yes Status: Acute Plan to address problem: IV fluid resuscitation therapy, neurochecks, aspiration precautions, fall precautions, CMP, (3) Metabolic acidosis Current Visit: Yes Status: Acute Plan to address problem: IV fluid resuscitation therapy, IV bicarbonate therapy, CMP, repeat CMP in a.m. (4) Diabetic ketoacidosis Current Visit: No Status: Acute Qualifiers: Diabetes mellitus type: type 1 Plan to address problem: DKA protocol: Insulin drip, IV fluid resuscitation therapy, serial BMP, monitor anion gap, monitor serum potassium. (5) DVT prophylaxis Current Visit: Yes Status: Acute Plan to address problem: SCD deep to bilateral lower extremities while in bed, prophylactic heparin (6) Advance care planning Current Visit: Yes Status: Acute Plan to address problem: Patient is full code, disease education conducted, patient acknowledges understanding and agreement with care plan, +35 minutes.
[2019-08-28] MEDS ORDERED: ALBUTEROL 2.5 MG/3 ML NEBU IH PRN (15:25)
[2019-08-28] MEDS ORDERED: SODIUM CHLORIDE 0.9% 500 ML 500 ML ONE (15:49)
[2019-08-28 16:00] LABS: Bacteria,Urine 1+ /HPF (Negative); Bilirubin,Urine NEG (Negative); Blood,Urine LG (Negative); Color,Urine Yellow (Yellow); Protein,Urine <15 mg/dL mg/dL (Negative); Urobilinogen,Urine < 2.0 mg/dL (<2.0)
[2019-08-28 16:48] LABS: Calcium 9.5 mg/dL (8.4-10.2)
--- NOTE | 2019-08-28 18:04 | Cat Scan Report ---
CT ABDOMEN AND PELVIS WITH CONTRAST INDICATION: abd pain. TECHNIQUE: Axial CT images were obtained through the abdomen and pelvis after 60 cc Omnipaque [address] scans at this location are performed using CT dose reduction for ALARA by means of automated e xposure control. COMPARISON: None available. FINDINGS: Exam is limited secondary to moderate amount of respiratory motion. LOWER CHEST: Calcified right middle lobe granuloma. No other significant abnormality. LIVER: Moderate decreased attenuation characteristic for steatosis. GALLBLADDER: No significant abnormality. BILE DUCTS: No significant abnormality. PANCREAS: No significant abnormality. SPLEEN: No significant abnormality. ADRENALS: No significant abnormality. RIGHT KIDNEY and URETER: Mild right hydronephrosis without visualized urinary tract calculi LEFT KIDNEY and URETER: Mild left hydronephrosis without visualized urinary tract calculi STOMACH and SMALL BOWEL: No significant abnormality. COLON: Large amount of colonic stool characteristic for constipation. APPENDIX: No significant abnormality. PERITONEUM: No free fluid. No free air. No fluid collection. LYMPH NODES: No significant adenopathy. AORTA and ARTERIES: Extensive vascular calcifications throughout nonaneurysmal aorta and iliac arteri es. IVC and VEINS: No significant abnormality. URINARY BLADDER: Moderately distended urinary bladder. REPRODUCTIVE ORGANS: Prostate brachytherapy seeds ADDITIONAL FINDINGS: None. SKELETAL SYSTEM: Osteopenia with old L1, L4 and L5 compression fractures and moderate degenerative ch anges of lumbar spine and both hips. IMPRESSION: 1. Mild bilateral hydronephrosis likely secondary to distended bladder with prostate brachytherapy se eds likely secondary to bladder outlet obstruction. 2. Severe constipation. Signer Name: Joey Baez MD Signed: 08/28/2019 6:00 PM Workstation Name: [id number]
[2019-08-28 18:45] LABS: Calcium 9.1 mg/dL (8.4-10.2)
[2019-08-28] MEDS ORDERED: ACETAMINOPHEN 650 MG RECT SUPP PR PRN (20:46)
[2019-08-28] MEDS ORDERED: ACETAMINOPHEN 650 MG RECT SUPP PR ONE (21:03)
[2019-08-28] MEDS: HEPARIN 5,000 UNIT/1 ML VIAL SUB-Q SCH (22:20)
[2019-08-28] MEDS ORDERED: D5W/0.45% NACL/KCL 20 MEQ 20 MEQ/1,000 ML BAG IV SCH (23:00)
[2019-08-28] MEDS ORDERED: D5W/0.45% NACL/KCL 20 MEQ 20 MEQ/1,000 ML BAG IV ONE (23:24)
[2019-08-29] MEDS ORDERED: POTASSIUM PHOSPHATE 30 MMOL in SODIUM CHLORIDE 0.9% 500 ML 500 ML IV ONE (00:15)
[2019-08-29 03:37] LABS: Hematocrit 33.6 % (35.5-45.6); Hemoglobin 11.2 gm/dl (11.8-15.2); Mean Corpuscular HGB Conc 34 % (32-34); Mean Corpuscular Volume 91 fl (84-94); Platelet Count 315 K/mm3 (140-440); Red Blood Count 3.71 M/mm3 (3.65-5.03); Red Cell Distribution Width 13.9 % (13.2-15.2)
[2019-08-29 04:00] LABS: Albumin 2.3 g/dL (3.9-5); Calcium 8.8 mg/dL (8.4-10.2)
[2019-08-29 05:01] LABS: Basophils % (Manual) 0 % (0.0-1.8); Eosinophils % (Manual) 0 % (0.0-4.3); Total Cells Counted 100
[2019-08-29 05:02] LABS: Platelet Estimate Consistent w Auto; Schistocytes Few
--- NOTE | 2019-08-29 06:50 | Consultation ---
History of Present Illness Consult date: 08/29/19 Requesting physician: HONG ALICEA History of present illness: 83-year-old male with DM, dementia presents to ED for evaluation. Patient is co nfused and lethargic and is unable to provide history. Patient family is at bedside during exam and interview and provide history. As per family the patient has experienced decreased appetite and decreased interaction with family over the past 4 weeks with worsening symptoms over the past 1 week. Patient has increased bedbound status and decreased ambulation due to generalized weakness. The patient currently requires 5 out of 6 assistance with activities of daily living. EMS was notified today and upon arrival the patient was found to be in distress and subsequently transported to [facility] for further care and evaluation. Patient seen and evaluated in the ED. Patient lab and imaging studies reviewed. Patient found to have diabetic ketoacidosis, metabolic encephalopathy, sepsis, metabolic acidosis. Patient admitted to ICU and initiated on sepsis and DKA protocols respectively. Patient admitted to ICU for medical stabilization due to high risk for decompensation I have been consulted fro critical care management. Thank you for the consult. At the time of my evaluation in the ED, he remains minimally responsive, no family at the bedside. History is as documented by the hospitalist service. Patient was seen and examined. Vitals, labs, medications, chart reviewed. He is on 5 units of insulin infusion, resting quietly in bed, stable hemodynamcis. Past History Past Medical History: diabetes, other (See HPI) Past Surgical History: No surgical history, Other (Reviewed) Social history: , lives with family. denies: smoking, alcohol abuse, prescription drug abuse Family history: hypertension Medications and Allergies Allergies Allergy/AdvReac Type Severity Reaction Status Date / Time No Known Allergies Allergy Unverified 08/21/13 10:19 Home Medications Medication Instructions Recorded Confirmed Last Taken Type Insulin Glargine,Hum.rec.anlog 20 unit SQ QHS #1 pen 08/21/13 08/28/19 Unknown Rx [Lantus Solostar] Insulin Lispro [Humalog] 5 unit SQ TIDAC #1 pen 08/21/13 08/28/19 Unknown Rx Losartan [Cozaar] 100 mg PO QDAY #30 tablet 08/21/13 08/28/19 Unknown Rx Active Meds: Active Medications Acetaminophen (Tylenol) 650 mg NV Q4H PRN PRN Reason: Pain, Mild (1-3) Last Admin: 08/28/19 21:00 Dose: 650 mg Documented by: Albuterol (Proventil) 2.5 mg IH Q3HRT PRN PRN Reason: Shortness Of Breath Heparin Sodium (Porcine) (Heparin) 5,000 unit SUB-Q Q12HR SUJATA Last Admin: 08/28/19 22:20 Dose: 5,000 unit Documented by: Insulin Human Regular 100 (units/ Sodium Chloride) 100 mls @ 1 mls/hr IV TITR SUJATA; Protocol Last Titration: 08/29/19 06:30 Dose: 3 units/hr, 3 mls/hr Documented by: Levofloxacin/Dextrose (Levaquin 750mg/150ml) 750 mg in 150 mls @ 100 mls/hr IV Q24HR SUJATA; Protocol Potassium Chloride/Dextrose/Sod Cl (D5w/0.45% Nacl/Kcl 20 Meq) 20 meq in 1,000 mls @ 125 mls/hr IV DIRECT SUJATA Last Admin: 08/28/19 23:30 Dose: 125 mls/hr Documented by: Sodium Chloride (Sodium Chloride Flush Syringe 10 Ml) 10 ml IV BID SUJATA Last Admin: 08/28/19 22:20 Dose: 10 ml Documented by: Sodium Chloride (Sodium Chloride Flush Syringe 10 Ml) 10 ml IV PRN PRN PRN Reason: LINE FLUSH Review of Systems ROS unobtainable: due to mental status Physical Examination Vital signs: Vital Signs Temp Pulse Resp BP Pulse Ox 97.8 F 99 H 23 145/64 99 08/28/19 13:27 08/28/19 13:27 08/28/19 13:27 08/28/19 13:27 08/28/19 13:27 Results - Laboratory Findings CBC and BMP: 08/29/19 03:06 08/29/19 07:47 Abnormal lab findings: Abnormal Labs 08/28/19 08/28/19 08/28/19 13:23 13:23 13:23 WBC 23.1 H Hgb Hct MCV 95 H Seg Neuts % (Manual) 96.0 H Lymphocytes % (Manual) 2.0 L Seg Neutrophils # Man 22.2 H Lymphocytes # (Manual) 0.5 L Monocytes # (Manual) VBG pH 7.177 L* Sodium Potassium 5.6 H Chloride 95.0 L Carbon Dioxide 11 L BUN 66 H Glucose 797 H* POC Glucose Phosphorus Magnesium Total Protein Albumin Urine WBC (Auto) 08/28/19 08/28/19 08/28/19 14:33 14:33 15:30 WBC Hgb Hct MCV Seg Neuts % (Manual) Lymphocytes % (Manual) Seg Neutrophils # Man Lymphocytes # (Manual) Monocytes # (Manual) VBG pH Sodium Potassium 5.5 H Chloride 93.0 L Carbon Dioxide 12 L BUN 64 H Glucose 789 H* POC Glucose Phosphorus Magnesium 2.90 H Total Protein Albumin Urine WBC (Auto) 13.0 H 08/28/19 08/28/19 08/28/19 18:00 18:38 19:45 WBC Hgb Hct MCV Seg Neuts % (Manual) Lymphocytes % (Manual) Seg Neutrophils # Man Lymphocytes # (Manual) Monocytes # (Manual) VBG pH Sodium Potassium Chloride Carbon Dioxide 11 L BUN 61 H Glucose 523 H* POC Glucose 487 H 481 H Phosphorus Magnesium Total Protein Albumin Urine WBC (Auto) 08/28/19 08/28/19 08/28/19 20:51 21:39 22:50 WBC Hgb Hct MCV Seg Neuts % (Manual) Lymphocytes % (Manual) Seg Neutrophils # Man Lymphocytes # (Manual) Monocytes # (Manual) VBG pH Sodium Potassium Chloride Carbon Dioxide BUN Glucose POC Glucose 443 H 350 H 239 H Phosphorus Magnesium Total Protein Albumin Urine WBC (Auto) 08/28/19 08/28/19 08/28/19 23:17 23:17 23:50 WBC Hgb Hct MCV Seg Neuts % (Manual) Lymphocytes % (Manual) Seg Neutrophils # Man Lymphocytes # (Manual) Monocytes # (Manual) VBG pH Sodium 149 H Potassium 3.1 L Chloride 115.4 H Carbon Dioxide BUN 57 H Glucose 231 H POC Glucose 219 H Phosphorus 0.90 L* D Magnesium 2.50 H Total Protein Albumin Urine WBC (Auto) 08/29/19 08/29/19 08/29/19 00:48 01:37 02:37 WBC Hgb Hct MCV Seg Neuts % (Manual) Lymphocytes % (Manual) Seg Neutrophils # Man Lymphocytes # (Manual) Monocytes # (Manual) VBG pH Sodium Potassium Chloride Carbon Dioxide BUN Glucose POC Glucose 205 H 208 H 192 H Phosphorus Magnesium Total Protein Albumin Urine WBC (Auto) 08/29/19 08/29/19 08/29/19 03:06 03:06 03:41 WBC 26.0 H Hgb 11.2 L Hct 33.6 L MCV Seg Neuts % (Manual) 92.0 H Lymphocytes % (Manual) 2.0 L Seg Neutrophils # Man 23.9 H Lymphocytes # (Manual) 0.5 L Monocytes # (Manual) 1.6 H VBG pH Sodium 149 H Potassium Chloride 115.9 H Carbon Dioxide BUN 53 H Glucose 192 H POC Glucose 221 H Phosphorus Magnesium Total Protein 5.4 L Albumin 2.3 L Urine WBC (Auto) 08/29/19 08/29/19 08/29/19 04:41 06:00 06:47 WBC Hgb Hct MCV Seg Neuts % (Manual) Lymphocytes % (Manual) Seg Neutrophils # Man Lymphocytes # (Manual) Monocytes # (Manual) VBG pH Sodium Potassium Chloride Carbon Dioxide BUN Glucose POC Glucose 171 H 148 H 138 H Phosphorus Magnesium Total Protein Albumin Urine WBC (Auto) Assessment and Plan Hyperosmolar hyperglycemia state Acute metabolic encephalopathy Metabolic acidosis History of prostate cancer status post brachy therapy with seeds Hydronephrosis Severe constipation Hypernatremia Dementia Recommendations -Continue therapies for HHS -Once off insulin infusion, can be admitted to a monitored setting, but does not need ICU level of care -Aspiration precautions, HOB >40 -resume home medications as clinically indicated -trend and monitor leukocytosis -Empiric antibiotics, de-escalate based on clinical status -Follow cultures -VTE prophylaxis -PT/OT to evaluate and treat -Insulin therapy, accuchesks with glycemic control. Avoid hypoglycemia Thank you for consult. Please do not hesitate to call with questions or concerns
[2019-08-29] MEDS ORDERED: D5W/0.45% NACL/KCL 20 MEQ 20 MEQ/1,000 ML BAG IV ONE (07:28)
[2019-08-29] MEDS ORDERED: DEXTROSE 50% IN WATER (25GM) 50 ML SYRINGE IV PRN ×3 (09:38→13:39)
[2019-08-29] MEDS: INSULIN LISPRO 100 UNIT/ML SUB-Q SCH ×5 (09:45→23:38)
[2019-08-29 10:00] LABS: BUN/Creatinine Ratio 46; Blood Urea Nitrogen 46 mg/dL (9-20); Calcium 8.7 mg/dL (8.4-10.2); Hemolysis Index 62
[2019-08-29] MEDS ORDERED: NON-FORMULARY EACH (Losartan [Cozaar] 100 MG) PO SCH (10:00)
[2019-08-29] MEDS ORDERED: LOSARTAN 50 MG TAB ONE (10:21)
[2019-08-29] MEDS: HEPARIN 5,000 UNIT/1 ML VIAL SUB-Q SCH (10:51)
[2019-08-29] MEDS ORDERED: HEPARIN 5,000 UNIT/1 ML VIAL ONE (10:52)
[2019-08-29] MEDS ORDERED: LOSARTAN 50 MG TAB PO SCH (11:00)
[2019-08-29] MEDS ORDERED: INSULIN LISPRO 100 UNIT/ML SUB-Q SCH (11:30)
[2019-08-29] MEDS ORDERED: ONDANSETRON 4 MG/2 ML INJ IV PRN (13:40)
[2019-08-29] MEDS ORDERED: ACETAMINOPHEN 325 MG TAB PO PRN (13:40)
[2019-08-29] MEDS ORDERED: ALBUTEROL 2.5 MG/3 ML NEBU IH PRN (13:40)
--- NOTE | 2019-08-29 13:47 | Progress Note ---
Assessment and Plan Assessment and plan: 83-year-old male with DM, dementia presents to ED for evaluation. Patient is confused and lethargic and is unable to provide history. Patient family is at bedside during exam and interview and provide history. As per family the patient has experienced decreased appetite and decreased interaction with family over the past 4 weeks with worsening symptoms over the past 1 week. Patient has increased bedbound status and decreased ambulation due to generalized weakness. The patient currently requires 5 out of 6 assistance with activities of daily living. EMS was notified today and upon arrival the patient was found to be in distress and subsequently transported to [facility] for further care and evaluation. Patient seen and evaluated in the ED. Patient lab and imaging studies reviewed. Patient found to have diabetic ketoacidosis, metabolic encephalopathy, sepsis, metabolic acidosis. Patient admitted to ICU and initiated on sepsis and DKA protocols respectively. Patient admitted to ICU for medical stabilization due to high risk for decompensation. Advanced care planning conducted in ED. Dora rojas education conducted. Patient family acknowledge understanding and agreement with care plan. Hyperosmolar nonketotic hyperglycemia Sepsis Acute metabolic encephalopathy Metabolic acidosis History of prostate cancer status post brachii therapy with seeds Hydronephrosis Severe constipation Hypernatremia Dementia Plan Patient has been downgraded following treatment for hyperosmolar nonketotic hyperglycemia Will resume home dose insulin therapy including Accu-Cheks before meals and at bedtime Resume diet as patient's mental status is gradually improving Follow cultures Start on Flomax Monitor sodium level Continue Abx. Patient did present to the hospital due to confusion and lethargy and decreased p.o. intake will obtain nutrition/dietitian consultation. We will also proceed with stool softeners for severe constipation as this may help Have discussed with nursing staff to obtain patient's full home medication. DVT/GI prophy Anticipate discharge in 24 to 48 hours History Interval history: Patient seen and examined this morning continues to improve gradually. No new complaints noted today. Blood pressure still elevated nevertheless gap has closed patient will be downgraded. He remains lethargic. Hospitalist Physical - Physical exam Narrative exam: VITAL SIGNS: Reviewed. GENERAL: The patient appears normally developed, elderly appearing vital signs as documented. HEAD: No signs of head trauma. EYES: Pupils are equal. Extraocular motions intact. EARS: Hearing grossly intact. MOUTH: Oropharynx is normal. NECK: No adenopathy, no JVD. CHEST: Chest with clear breath sounds bilaterally. No wheezes, rales, or rhonchi. CARDIAC: Regular rate and rhythm. S1 and S2, without murmurs, gallops, or rubs. VASCULAR: No Edema. Peripheral pulses normal and equal in all extremities. ABDOMEN: Soft, distended with mild right-sided tenderness. No rebound or guarding, and no masses palpated. Bowel Sounds normal. MUSCULOSKELETAL: Good range of motion of all major joints. Extremities without clubbing, cyanosis or edema. NEUROLOGIC EXAM: Awake but lethargic and oriented x 3 No focal sensory or strength deficits. Speech normal. Follows commands. PSYCHIATRIC: Mood normal. SKIN: detail exam as documented in skin assessment - Constitutional Vitals: Temp Pulse Resp BP Pulse Ox 98.7 F 80 16 173/85 96 08/29/19 02:00 08/29/19 10:41 08/29/19 10:41 08/29/19 10:41 08/29/19 10:41 General appearance: Present: severe distress, cachectic Results - Labs CBC & Chem 7: 08/29/19 03:06 08/29/19 07:47 Labs: Laboratory Last Values WBC 26.0 K/mm3 (4.5-11.0) H 08/29/19 03:06 RBC 3.71 M/mm3 (3.65-5.03) 08/29/19 03:06 Hgb 11.2 gm/dl (11.8-15.2) L 08/29/19 03:06 Hct 33.6 % (35.5-45.6) L 08/29/19 03:06 MCV 91 fl (84-94) 08/29/19 03:06 MCH 30 pg (28-32) 08/29/19 03:06 MCHC 34 % (32-34) 08/29/19 03:06 RDW 13.9 % (13.2-15.2) 08/29/19 03:06 Plt Count 315 K/mm3 (140-440) 08/29/19 03:06 Add Manual Diff Complete 08/29/19 03:06 Total Counted 100 08/29/19 03:06 Seg Neutrophils % Slat Basket Maker 08/29/19 03:06 Seg Neuts % (Manual) 92.0 % (40.0-70.0) H 08/29/19 03:06 Band Neutrophils % 0 % 08/29/19 03:06 Lymphocytes % (Manual) 2.0 % (13.4-35.0) L 08/29/19 03:06 Reactive Lymphs % (Man) 0 % 08/29/19 03:06 Monocytes % (Manual) 6.0 % (0.0-7.3) 08/29/19 03:06 Eosinophils % (Manual) 0 % (0.0-4.3) 08/29/19 03:06 Basophils % (Manual) 0 % (0.0-1.8) 08/29/19 03:06 Metamyelocytes % 0 % 08/29/19 03:06 Myelocytes % 0 % 08/29/19 03:06 Promyelocytes % 0 % 08/29/19 03:06 Blast Cells % 0 % 08/29/19 03:06 Nucleated RBC % Not Reportable 08/29/19 03:06 Seg Neutrophils # Man 23.9 K/mm3 (1.8-7.7) H 08/29/19 03:06 Band Neutrophils # 0.0 K/mm3 08/29/19 03:06 Lymphocytes # (Manual) 0.5 K/mm3 (1.2-5.4) L 08/29/19 03:06 Abs React Lymphs (Man) 0.0 K/mm3 08/29/19 03:06 Monocytes # (Manual) 1.6 K/mm3 (0.0-0.8) H 08/29/19 03:06 Eosinophils # (Manual) 0.0 K/mm3 (0.0-0.4) 08/29/19 03:06 Basophils # (Manual) 0.0 K/mm3 (0.0-0.1) 08/29/19 03:06 Metamyelocytes # 0.0 K/mm3 08/29/19 03:06 Myelocytes # 0.0 K/mm3 08/29/19 03:06 Promyelocytes # 0.0 K/mm3 08/29/19 03:06 Blast Cells # 0.0 K/mm3 08/29/19 03:06 WBC Morphology Not Reportable 08/29/19 03:06 Hypersegmented Neuts Not Reportable 08/29/19 03:06 Hyposegmented Neuts Not Reportable 08/29/19 03:06 Hypogranular Neuts Not Reportable 08/29/19 03:06 Smudge Cells Not Reportable 08/29/19 03:06 Toxic Granulation Not Reportable 08/29/19 03:06 Toxic Vacuolation Not Reportable 08/29/19 03:06 Dohle Bodies Not Reportable 08/29/19 03:06 Pelger-Huet Anomaly Not Reportable 08/29/19 03:06 Michael Rods Not Reportable 08/29/19 03:06 Platelet Estimate Consistent w auto 08/29/19 03:06 Clumped Platelets Not Reportable 08/29/19 03:06 Plt Clumps, EDTA Not Reportable 08/29/19 03:06 Large Platelets Not Reportable 08/29/19 03:06 Giant Platelets Not Reportable 08/29/19 03:06 Platelet Satelliting Not Reportable 08/29/19 03:06 Plt Morphology Comment Not Reportable 08/29/19 03:06 RBC Morphology Not Reportable 08/29/19 03:06 Dimorphic RBCs Not Reportable 08/29/19 03:06 Polychromasia Not Reportable 08/29/19 03:06 Hypochromasia Not Reportable 08/29/19 03:06 Poikilocytosis Not Reportable 08/29/19 03:06 Anisocytosis Not Reportable 08/29/19 03:06 Microcytosis Not Reportable 08/29/19 03:06 Macrocytosis Not Reportable 08/29/19 03:06 Spherocytes Not Reportable 08/29/19 03:06 Pappenheimer Bodies Not Reportable 08/29/19 03:06 Sickle Cells Not Reportable 08/29/19 03:06 Target Cells Not Reportable 08/29/19 03:06 Tear Drop Cells Not Reportable 08/29/19 03:06 Ovalocytes Not Reportable 08/29/19 03:06 Helmet Cells Not Reportable 08/29/19 03:06 [place] Bodies Not Reportable 08/29/19 03:06 [place] Rings Not Reportable 08/29/19 03:06 [place] Cells Not Reportable 08/29/19 03:06 Bite Cells Not Reportable 08/29/19 03:06 Crenated Cell Not Reportable 08/29/19 03:06 Elliptocytes Not Reportable 08/29/19 03:06 Acanthocytes (Spur) Not Reportable 08/29/19 03:06 Rouleaux Not Reportable 08/29/19 03:06 Hemoglobin C Crystals Not Reportable 08/29/19 03:06 Schistocytes Few 08/29/19 03:06 Malaria parasites Not Reportable 08/29/19 03:06 Natalio Bodies Not Reportable 08/29/19 03:06 Hem Pathologist Commnt No 08/29/19 03:06 VBG pH 7.177 (7.320-7.420) L* 08/28/19 13:23 Sodium 152 mmol/L (137-145) H 08/29/19 07:47 Potassium 4.1 mmol/L (3.6-5.0) 08/29/19 07:47 Chloride 117.6 mmol/L (98-107) H 08/29/19 07:47 Carbon Dioxide 20 mmol/L (22-30) L 08/29/19 07:47 Anion Gap 19 mmol/L 08/29/19 07:47 BUN 46 mg/dL (9-20) H 08/29/19 07:47 Creatinine 1.0 mg/dL (0.8-1.5) 08/29/19 07:47 Estimated GFR > 60 ml/min 08/29/19 07:47 BUN/Creatinine Ratio 46 % 08/29/19 07:47 Glucose 127 mg/dL (75-100) H 08/29/19 07:47 POC Glucose 143 (70-105) H 08/29/19 09:42 Ketones Quantitative Moderate (Negative) 08/28/19 13:23 Lactic Acid 1.90 mmol/L (0.7-2.0) 08/28/19 23:17 Calcium 8.7 mg/dL (8.4-10.2) 08/29/19 07:47 Phosphorus 3.40 mg/dL (2.5-4.5) D 08/29/19 07:47 Magnesium 2.50 mg/dL (1.7-2.3) H 08/28/19 23:17 Total Bilirubin 0.20 mg/dL (0.1-1.2) 08/29/19 03:06 AST 10 units/L (5-40) 08/29/19 03:06 ALT 9 units/L (7-56) 08/29/19 03:06 Alkaline Phosphatase 75 units/L (35-129) 08/29/19 03:06 Total Protein 5.4 g/dL (6.3-8.2) L 08/29/19 03:06 Albumin 2.3 g/dL (3.9-5) L 08/29/19 03:06 Albumin/Globulin Ratio 0.7 % 08/29/19 03:06 Urine Color Yellow (Yellow) 08/28/19 15:30 Urine Turbidity Slightly-cloudy (Clear) 08/28/19 15:30 Urine pH 5.0 (5.0-7.0) 08/28/19 15:30 Ur Specific [place] 1.020 (1.003-1.030) 08/28/19 15:30 Urine Protein <15 mg/dl mg/dL (Negative) 08/28/19 15:30 Urine Glucose (UA) >=500 mg/dL (Negative) 08/28/19 15:30 Urine Ketones 80 mg/dL (Negative) 08/28/19 15:30 Urine Blood Lg (Negative) 08/28/19 15:30 Urine Nitrite Neg (Negative) 08/28/19 15:30 Urine Bilirubin Neg (Negative) 08/28/19 15:30 Urine Urobilinogen < 2.0 mg/dL (<2.0) 08/28/19 15:30 Ur Leukocyte Esterase Neg (Negative) 08/28/19 15:30 Urine WBC (Auto) 13.0 /HPF (0.0-6.0) H 08/28/19 15:30 Urine RBC (Auto) 2.0 /HPF (0.0-6.0) 08/28/19 15:30 Urine Bacteria (Auto) 1+ /HPF (Negative) 08/28/19 15:30 Active Medications - Current Medications Current Medications: Generic Name Dose Route Start Last Admin Trade Name Freq PRN Reason Stop Dose Admin Acetaminophen 650 mg 08/29/19 13:40 Tylenol PO Q4H PRN Pain MILD(1-3)/Fever >100.5/IGNACIO Albuterol 2.5 mg 08/29/19 13:40 Proventil IH Q4HRT PRN Shortness Of Breath Dextrose 50 ml 08/29/19 13:39 D50w (25gm) Syringe IV Q30MIN PRN Hypoglycemia Protocol Hydralazine HCl 20 mg 08/29/19 14:00 Apresoline IV Q4HR [facility] Levofloxacin/Dextrose 750 mg in 150 mls @ 100 mls/hr 08/30/19 10:00 Levaquin 750mg/150ml IV Q24HR [facility] Protocol Insulin Glargine 20 units 08/29/19 22:00 Lantus SUB-Q QHS [facility] Insulin Human Lispro 0 unit 08/29/19 16:30 Humalog SUB-Q ACHS [facility] Protocol Insulin Human Lispro 5 unit 08/29/19 16:30 Humalog SUB-Q TIDAC [facility] Losartan Potassium 100 mg 08/30/19 10:00 Cozaar PO QDAY [facility] Ondansetron HCl 4 mg 08/29/19 13:40 Zofran IV Q8H PRN Nausea And Vomiting Sodium Chloride 10 ml 08/29/19 22:00 Sodium Chloride Flush Syringe 10 Ml IV BID [facility] Sodium Chloride 10 ml 08/29/19 13:40 Sodium Chloride Flush Syringe 10 Ml IV PRN PRN LINE FLUSH
[2019-08-29] MEDS: hydrALAZINE 20 MG/1 ML INJ IV SCH (16:03)
[2019-08-29] MEDS: TAMSULOSIN 0.4 MG CAP PO SCH (16:03)
[2019-08-29] MEDS: LATANOPROST 0.005% OPHTH SOLN 2.5 ML OU SCH (17:04)
[2019-08-29] MEDS ORDERED: SENNOSIDES/DOCUSATE SODIUM 8.6/50 MG TAB PO SCH (22:00)
[2019-08-29] MEDS ORDERED: INSULIN GLARGINE 100 UNITS/ML SUB-Q SCH ×2 (22:00)
[2019-08-29] MEDS ORDERED: INSULIN GLARGINE HUM REC ANLOG 20 UNIT SQ SCH (22:00)
[2019-08-29] MEDS: INSULIN GLARGINE 100 UNITS/ML SUB-Q SCH (23:35)
[2019-08-29] MEDS: DOCUSATE SODIUM 100 MG CAP PO SCH (23:39)
[2019-08-30 05:38] LABS: Hematocrit 35.2 % (35.5-45.6); Hemoglobin 11.8 gm/dl (11.8-15.2); Mean Corpuscular HGB Conc 33 % (32-34); Mean Corpuscular Volume 92 fl (84-94); Platelet Count 278 K/mm3 (140-440); Red Blood Count 3.85 M/mm3 (3.65-5.03)
[2019-08-30 06:00] LABS: BUN/Creatinine Ratio 50; Blood Urea Nitrogen 45 mg/dL (9-20); Calcium 8.5 mg/dL (8.4-10.2); Hemolysis Index 2
[2019-08-30] MEDS: INSULIN LISPRO 100 UNIT/ML SUB-Q SCH ×8 (06:00→17:34)
[2019-08-30 06:56] LABS: Anisocytosis 1+; Basophils % (Manual) 0 % (0.0-1.8); Eosinophils % (Manual) 0 % (0.0-4.3); Total Cells Counted 100
[2019-08-30 06:57] LABS: Burr Cells 1+; Platelet Estimate Consistent w Auto; Poikilocytosis 1+
[2019-08-30] MEDS: hydrALAZINE 20 MG/1 ML INJ IV SCH ×3 (08:23→14:30)
[2019-08-30] MEDS: TAMSULOSIN 0.4 MG CAP PO SCH (11:14)
[2019-08-30] MEDS: DOCUSATE SODIUM 100 MG CAP PO SCH ×2 (11:14→22:00)
[2019-08-30] MEDS: LOSARTAN 50 MG TAB PO SCH (11:14)
--- NOTE | 2019-08-30 14:09 | Progress Note ---
Assessment and Plan Assessment and plan: 83-year-old male with DM, dementia presents to ED for evaluation. Patient is confused and lethargic and is unable to provide history. Patient family is at bedside during exam and interview and provide history. As per family the patient has experienced decreased appetite and decreased interaction with family over the past 4 weeks with worsening symptoms over the past 1 week. Patient has increased bedbound status and decreased ambulation due to generalized weakness. The patient currently requires 5 out of 6 assistance with activities of daily living. EMS was notified today and upon arrival the patient was found to be in distress and subsequently transported to [facility] for further care and evaluation. Patient seen and evaluated in the ED. Patient lab and imaging studies reviewed. Patient found to have diabetic ketoacidosis, metabolic encephalopathy, sepsis, metabolic acidosis. Patient admitted to ICU and initiated on sepsis and DKA protocols respectively. Patient admitted to ICU for medical stabilization due to high risk for decompensation. Advanced care planning conducted in ED. Dora rojas education conducted. Patient family acknowledge understanding and agreement with care plan. Hyperosmolar nonketotic hyperglycemia Sepsis-E. coli bacteremia Acute metabolic encephalopathy Metabolic acidosis History of prostate cancer status post brachii therapy with seeds Hydronephrosis Severe constipation Hypernatremia Dementia Plan Patient has been downgraded following treatment for hyperosmolar nonketotic hyperglycemia We will obtain an echocardiogram considering bacteremia and sure patient has no valvular vegetations Will resume home dose insulin therapy including Accu-Cheks before meals and at bedtime AND ADJUST Resume diet as patient's mental status is gradually improving Follow cultures Continue on Flomax Monitor sodium level Continue Abx. Patient did present to the hospital due to confusion and lethargy and decreased p.o. intake will obtain nutrition/dietitian consultation. We will also proceed with stool softeners for severe constipation as this may help Have discussed with nursing staff to obtain patient's full home medication. DVT/GI prophy Anticipate discharge in 24 hours History Interval history: Patient seen and examined this morning continues to improve gradually. Family at bedside it appears that the patient has been staying with his elderly who unfortunately is unable to care for him adequately. Patient is tolerating some clear liquids but still not taking p.o. We will continue to monitor discussed extensively with the family. Hospitalist Physical - Physical exam Narrative exam: VITAL SIGNS: Reviewed. GENERAL: The patient appears normally developed, elderly appearing, vital signs as documented. HEAD: No signs of head trauma. EYES: Pupils are equal. Extraocular motions intact. EARS: Hearing grossly intact. MOUTH: Oropharynx is normal. NECK: No adenopathy, no JVD. CHEST: Chest with clear breath sounds bilaterally. No wheezes, rales, or rhonchi. CARDIAC: Regular rate and rhythm. S1 and S2, without murmurs, gallops, or rubs. VASCULAR: No Edema. Peripheral pulses normal and equal in all extremities. ABDOMEN: Soft, distended with mild right-sided tenderness. No rebound or guarding, and no masses palpated. Bowel Sounds normal. MUSCULOSKELETAL: Good range of motion of all major joints. Extremities without clubbing, cyanosis or edema. NEUROLOGIC EXAM: Awake but lethargic and oriented x 3 No focal sensory or strength deficits. Speech normal. Follows commands. PSYCHIATRIC: Mood normal. SKIN: detail exam as documented in skin assessment - Constitutional Vitals: Temp Pulse Resp BP Pulse Ox 97.7 F 77 20 108/49 98 08/30/19 13:37 08/30/19 13:37 08/30/19 13:37 08/30/19 13:37 08/30/19 13:37 General appearance: Present: severe distress, cachectic Results - Labs CBC & Chem 7: 08/30/19 04:46 08/30/19 04:46 Labs: Laboratory Last Values WBC 14.5 K/mm3 (4.5-11.0) H 08/30/19 04:46 RBC 3.85 M/mm3 (3.65-5.03) 08/30/19 04:46 Hgb 11.8 gm/dl (11.8-15.2) 08/30/19 04:46 Hct 35.2 % (35.5-45.6) L 08/30/19 04:46 MCV 92 fl (84-94) 08/30/19 04:46 MCH 31 pg (28-32) 08/30/19 04:46 MCHC 33 % (32-34) 08/30/19 04:46 RDW 14.0 % (13.2-15.2) 08/30/19 04:46 Plt Count 278 K/mm3 (140-440) 08/30/19 04:46 Add Manual Diff Complete 08/30/19 04:46 Total Counted 100 08/30/19 04:46 Seg Neutrophils % Equipment Engineering Technician 08/30/19 04:46 Seg Neuts % (Manual) 95.0 % (40.0-70.0) H 08/30/19 04:46 Band Neutrophils % 0 % 08/30/19 04:46 Lymphocytes % (Manual) 1.0 % (13.4-35.0) L 08/30/19 04:46 Reactive Lymphs % (Man) 0 % 08/30/19 04:46 Monocytes % (Manual) 4.0 % (0.0-7.3) 08/30/19 04:46 Eosinophils % (Manual) 0 % (0.0-4.3) 08/30/19 04:46 Basophils % (Manual) 0 % (0.0-1.8) 08/30/19 04:46 Metamyelocytes % 0 % 08/30/19 04:46 Myelocytes % 0 % 08/30/19 04:46 Promyelocytes % 0 % 08/30/19 04:46 Blast Cells % 0 % 08/30/19 04:46 Nucleated RBC % Not Reportable 08/30/19 04:46 Seg Neutrophils # Man 13.8 K/mm3 (1.8-7.7) H 08/30/19 04:46 Band Neutrophils # 0.0 K/mm3 08/30/19 04:46 Lymphocytes # (Manual) 0.1 K/mm3 (1.2-5.4) L 08/30/19 04:46 Abs React Lymphs (Man) 0.0 K/mm3 08/30/19 04:46 Monocytes # (Manual) 0.6 K/mm3 (0.0-0.8) 08/30/19 04:46 Eosinophils # (Manual) 0.0 K/mm3 (0.0-0.4) 08/30/19 04:46 Basophils # (Manual) 0.0 K/mm3 (0.0-0.1) 08/30/19 04:46 Metamyelocytes # 0.0 K/mm3 08/30/19 04:46 Myelocytes # 0.0 K/mm3 08/30/19 04:46 Promyelocytes # 0.0 K/mm3 08/30/19 04:46 Blast Cells # 0.0 K/mm3 08/30/19 04:46 WBC Morphology Not Reportable 08/30/19 04:46 Hypersegmented Neuts Not Reportable 08/30/19 04:46 Hyposegmented Neuts Not Reportable 08/30/19 04:46 Hypogranular Neuts Not Reportable 08/30/19 04:46 Smudge Cells Not Reportable 08/30/19 04:46 Toxic Granulation Not Reportable 08/30/19 04:46 Toxic Vacuolation Not Reportable 08/30/19 04:46 Dohle Bodies Not Reportable 08/30/19 04:46 Pelger-Huet Anomaly Not Reportable 08/30/19 04:46 Michael Rods Not Reportable 08/30/19 04:46 Platelet Estimate Consistent w auto 08/30/19 04:46 Clumped Platelets Not Reportable 08/30/19 04:46 Plt Clumps, EDTA Not Reportable 08/30/19 04:46 Large Platelets Not Reportable 08/30/19 04:46 Giant Platelets Not Reportable 08/30/19 04:46 Platelet Satelliting Not Reportable 08/30/19 04:46 Plt Morphology Comment Not Reportable 08/30/19 04:46 RBC Morphology Not Reportable 08/30/19 04:46 Dimorphic RBCs Not Reportable 08/30/19 04:46 Polychromasia Not Reportable 08/30/19 04:46 Hypochromasia Not Reportable 08/30/19 04:46 Poikilocytosis 1+ 08/30/19 04:46 Anisocytosis 1+ 08/30/19 04:46 Microcytosis Not Reportable 08/30/19 04:46 Macrocytosis Not Reportable 08/30/19 04:46 Spherocytes Not Reportable 08/30/19 04:46 Pappenheimer Bodies Not Reportable 08/30/19 04:46 Sickle Cells Not Reportable 08/30/19 04:46 Target Cells Not Reportable 08/30/19 04:46 Tear Drop Cells Not Reportable 08/30/19 04:46 Ovalocytes Not Reportable 08/30/19 04:46 Helmet Cells Not Reportable 08/30/19 04:46 [place] Bodies Not Reportable 08/30/19 04:46 [place] Rings Not Reportable 08/30/19 04:46 [place] Cells 1+ 08/30/19 04:46 Bite Cells Not Reportable 08/30/19 04:46 Crenated Cell Not Reportable 08/30/19 04:46 Elliptocytes Not Reportable 08/30/19 04:46 Acanthocytes (Spur) Not Reportable 08/30/19 04:46 Rouleaux Not Reportable 08/30/19 04:46 Hemoglobin C Crystals Not Reportable 08/30/19 04:46 Schistocytes Not Reportable 08/30/19 04:46 Malaria parasites Not Reportable 08/30/19 04:46 Natalio Bodies Not Reportable 08/30/19 04:46 Hem Pathologist Commnt No 08/30/19 04:46 VBG pH 7.177 (7.320-7.420) L* 08/28/19 13:23 Sodium 142 mmol/L (137-145) D 08/30/19 04:46 Potassium 3.9 mmol/L (3.6-5.0) 08/30/19 04:46 Chloride 106.7 mmol/L (98-107) 08/30/19 04:46 Carbon Dioxide 23 mmol/L (22-30) 08/30/19 04:46 Anion Gap 16 mmol/L 08/30/19 04:46 BUN 45 mg/dL (9-20) H 08/30/19 04:46 Creatinine 0.9 mg/dL (0.8-1.5) 08/30/19 04:46 Estimated GFR > 60 ml/min 08/30/19 04:46 BUN/Creatinine Ratio 50 % 08/30/19 04:46 Glucose 360 mg/dL (75-100) H 08/30/19 04:46 POC Glucose 277 (70-105) H 08/30/19 11:32 Ketones Quantitative Moderate (Negative) 08/28/19 13:23 Lactic Acid 1.90 mmol/L (0.7-2.0) 08/28/19 23:17 Calcium 8.5 mg/dL (8.4-10.2) 08/30/19 04:46 Phosphorus 3.40 mg/dL (2.5-4.5) D 08/29/19 07:47 Magnesium 2.50 mg/dL (1.7-2.3) H 08/28/19 23:17 Total Bilirubin 0.20 mg/dL (0.1-1.2) 08/29/19 03:06 AST 10 units/L (5-40) 08/29/19 03:06 ALT 9 units/L (7-56) 08/29/19 03:06 Alkaline Phosphatase 75 units/L (35-129) 08/29/19 03:06 Total Protein 5.4 g/dL (6.3-8.2) L 08/29/19 03:06 Albumin 2.3 g/dL (3.9-5) L 08/29/19 03:06 Albumin/Globulin Ratio 0.7 % 08/29/19 03:06 Urine Color Yellow (Yellow) 08/28/19 15:30 Urine Turbidity Slightly-cloudy (Clear) 08/28/19 15:30 Urine pH 5.0 (5.0-7.0) 08/28/19 15:30 Ur Specific [place] 1.020 (1.003-1.030) 08/28/19 15:30 Urine Protein <15 mg/dl mg/dL (Negative) 08/28/19 15:30 Urine Glucose (UA) >=500 mg/dL (Negative) 08/28/19 15:30 Urine Ketones 80 mg/dL (Negative) 08/28/19 15:30 Urine Blood Lg (Negative) 08/28/19 15:30 Urine Nitrite Neg (Negative) 08/28/19 15:30 Urine Bilirubin Neg (Negative) 08/28/19 15:30 Urine Urobilinogen < 2.0 mg/dL (<2.0) 08/28/19 15:30 Ur Leukocyte Esterase Neg (Negative) 08/28/19 15:30 Urine WBC (Auto) 13.0 /HPF (0.0-6.0) H 08/28/19 15:30 Urine RBC (Auto) 2.0 /HPF (0.0-6.0) 08/28/19 15:30 Urine Bacteria (Auto) 1+ /HPF (Negative) 08/28/19 15:30 Active Medications - Current Medications Current Medications: Generic Name Dose Route Start Last Admin Trade Name Freq PRN Reason Stop Dose Admin Acetaminophen 650 mg 08/29/19 13:40 08/29/19 23:39 Tylenol PO 650 mg Q4H PRN Administration Pain MILD(1-3)/Fever >100.5/IGNACIO Albuterol 2.5 mg 08/29/19 13:40 Proventil IH Q4HRT PRN Shortness Of Breath Bisacodyl 10 mg 08/29/19 13:48 Dulcolax MT QDAY PRN Constipation Dextrose 50 ml 08/29/19 13:39 D50w (25gm) Syringe IV Q30MIN PRN Hypoglycemia Protocol Docusate Sodium 100 mg 08/29/19 22:00 08/30/19 11:14 Colace PO 100 mg BID SUJATA Administration Hydralazine HCl 20 mg 08/29/19 14:00 08/30/19 11:14 Apresoline IV 20 mg Q4HR [facility]ATA Administration Levofloxacin/Dextrose 750 mg in 150 mls @ 100 mls/hr 08/31/19 10:00 Levaquin 750mg/150ml IV Q48HR [facility] Protocol Insulin Glargine 30 units 08/29/19 22:00 08/29/19 23:35 Lantus SUB-Q 30 units QHS [facility]ATA Administration Insulin Human Lispro 0 unit 08/29/19 16:30 08/30/19 11:51 Humalog SUB-Q 4 unit ACHS SUJATA Administration Protocol Insulin Human Lispro 10 unit 08/30/19 08:30 08/30/19 11:51 Humalog SUB-Q 10 unit TIDAC SUJATA Administration Latanoprost 1 drops 08/29/19 18:00 08/29/19 17:04 Latanoprost 0.005% OU 1 drops QPM SUJATA Administration Losartan Potassium 100 mg 08/30/19 10:00 08/30/19 11:14 Cozaar PO 100 mg QDAY SUJATA Administration Ondansetron HCl 4 mg 08/29/19 13:40 Zofran IV Q8H PRN Nausea And Vomiting Senna/Docusate Sodium 1 tab 08/29/19 22:00 Senokot S PO QHS SUJATA Sodium Chloride 10 ml 08/29/19 22:00 08/30/19 11:15 Sodium Chloride Flush Syringe 10 Ml IV 10 ml BID SUJATA Administration Sodium Chloride 10 ml 08/29/19 13:40 Sodium Chloride Flush Syringe 10 Ml IV PRN PRN LINE FLUSH Tamsulosin HCl 0.4 mg 08/29/19 14:00 08/30/19 11:14 Flomax PO 0.4 mg QDAY SUJATA Administration Nutrition/Malnutrition Assess - Dietary Evaluation Nutrition/Malnutrition Findings: Nutrition Notes Start: 08/30/19 11:00 Freq: Status: Active Protocol: Document 08/30/19 11:00 MK (Rec: 08/30/19 11:27 [id number]) Co-Sign 08/30/19 11:00 LP Nutrition Notes Need for Assessment generated from: MD Order,Education Initial or Follow up Assessment Current Diagnosis Diabetes Other Pertinent Diagnosis DKA, Dementia, Metabolic encephalopathy, Sepsis Current Diet Cardiac/Consistent CHO Labs/Tests BUN 45 BG 360 Poc Glu 219 Pertinent Medications Reviewed Height 5 ft 3 in Weight 53 kg [place] Body Weight (kg) 56.36 BMI 20.7 Weight Status Underweight Subjective/Other Information MD consult for diet education and supplement. Pt unwilling to discuss DM diet education and past weight/appetite hx. Pt consumbed 100% of Ensure. Burn Absent Trauma Absent Minimum of two criteria Yes Body Fat Depletion Mild depletion (non-severe) Muscle Mass Mild Depletion (non-severe) Reduced Parking Meter Collector Strength Measurably Reduced (severe) #1 Nutrition Diagnosis Malnutrition Etiology Advanced age As Evidenced by Signs and Symptoms Pt ate 0% of bfast, fat and muscle wasting, weak family preservation officer strength Is patient on ventilator? No Is Patient Ambulatory and/or Out of Bed Yes REE-([place]. or-ambulatory/OOB) [ [id number] [id number]] Calculation Used for Recommendations [place] or Additional Notes Pro: 64-80 g (1.2-1.5g/kg) Fluid: 1 ml/kcal Nutrition Intervention Change Diet Order: Continue Add Supplement/Snack (indicate name/kcal Glucerna BID /protein ) Provides kCal: 440 Provides Protein (gm) 20 Teaching Recipient Patient Learning Readiness Poor Teaching Methods Discussion Response to Teaching Refuses to learn Barriers to Learning Motivation RD phone number provided No Patient aware of follow up options Yes Goal #1 Meet at least 80% of protein and energy needs via PO and ONS intakes Anticipated Discharge Needs: Cardiac/Consistent CHO Follow-Up By: 09/02/19 Additional Comments FU for diet education and intakes - Malnutrition Assessment Minimum of two criteria: Yes - Attestation Statement I have reviewed and agreed w/ Malnutrition eval & tx plan: Yes
[2019-08-30] MEDS: LATANOPROST 0.005% OPHTH SOLN 2.5 ML OU SCH (17:35)
[2019-08-30] MEDS: INSULIN GLARGINE 100 UNITS/ML SUB-Q SCH (22:54)
[2019-08-31 06:03] LABS: Hematocrit 34.7 % (35.5-45.6); Hemoglobin 11.8 gm/dl (11.8-15.2); Mean Corpuscular HGB Conc 34 % (32-34); Mean Corpuscular Volume 91 fl (84-94); Platelet Count 259 K/mm3 (140-440); Red Blood Count 3.84 M/mm3 (3.65-5.03); Red Cell Distribution Width 13.9 % (13.2-15.2)
[2019-08-31 06:22] LABS: BUN/Creatinine Ratio 50; Blood Urea Nitrogen 35 mg/dL (9-20); Calcium 8.6 mg/dL (8.4-10.2); Hemolysis Index 5
[2019-08-31] MEDS: INSULIN LISPRO 100 UNIT/ML SUB-Q SCH ×6 (07:30→17:32)
--- NOTE | 2019-08-31 09:34 | Discharge Summary ---
Providers - Providers Date of Admission: 08/28/19 15:25 Attending physician: FAWN CLARK MD 08/29/19 13:40 Consult to Dietitian/Nutrition [CONS] Routine Physician Instructions: Reason For Exam: Reason for Consult: Diet education Primary care physician: INTERNET PROGRAMMER Hospitalization Reason for admission: DKA Condition: Stable Hospital course: 83-year-old male with DM, dementia presents to ED for evaluation. Patient is confused and lethargic and is unable to provide history. Patient family is at bedside during exam and interview and provide history. As per family the patient has experienced decreased appetite and decreased interaction with family over the past 4 weeks with worsening symptoms over the past 1 week. Patient has increased bedbound status and decreased ambulation due to generalized weakness. The patient currently requires 5 out of 6 assistance with activities of daily living. EMS was notified today and upon arrival the patient was found to be in distress and subsequently transported to [facility] for further care and evaluation. Patient seen and evaluated in the ED. Patient lab and imaging studies reviewed. Patient found to have diabetic ketoacidosis, metabolic encephalopathy, sepsis, metabolic acidosis. Patient admitted to ICU and initiated on sepsis and DKA protocols respectively. Patient admitted to ICU for medical stabilization due to high risk for decompensation. Advanced care planning conducted in ED. Disease education conducted. Patient family acknowledge understanding and agreement with care plan. * Pateint was treated for DKA, * Family offered SNF considering patients age and the fact that she lives at home alone with her aged spouse and has not been taking his meds they reques liam for Home health instead and the son and daughter will have him come to their home * Advised about Ecoli Bactermia, no soruce was noted, no further fever * Echo cardiogram obtained to rule out Vegetation. * Patient will be discharged on 14 days abx Hyperosmolar nonketotic hyperglycemia Sepsis-E. coli bacteremia Acute metabolic encephalopathy Metabolic acidosis History of prostate cancer status post brachii therapy with seeds Hydronephrosis Severe constipation Hypernatremia Dementia Disposition: [id number] HOME UNDER [facility] Time spent for discharge: 35 mins Core Measure Documentation - Palliative Care Palliative Care/ Comfort Measures: Not Applicable - Core Measures Any of the following diagnoses?: none Exam - Physical Exam Narrative exam: VITAL SIGNS: Reviewed. GENERAL: The patient appears normally developed, elderly appearing, vital signs as documented. HEAD: No signs of head trauma. EYES: Pupils are equal. Extraocular motions intact. EARS: Hearing grossly intact. MOUTH: Oropharynx is normal. NECK: No adenopathy, no JVD. CHEST: Chest with clear breath sounds bilaterally. No wheezes, rales, or rhonchi. CARDIAC: Regular rate and rhythm. S1 and S2, without murmurs, gallops, or rubs. VASCULAR: No Edema. Peripheral pulses normal and equal in all extremities. ABDOMEN: Soft, distended with mild right-sided tenderness. No rebound or guarding, and no masses palpated. Bowel Sounds normal. MUSCULOSKELETAL: Good range of motion of all major joints. Extremities without clubbing, cyanosis or edema. NEUROLOGIC EXAM: Awake but lethargic and oriented x 3 No focal sensory or strength deficits. Speech normal. Follows commands. PSYCHIATRIC: Mood normal. SKIN: detail exam as documented in skin assessment - Constitutional Vitals: Temp Pulse Resp BP Pulse Ox 97.8 F 85 20 167/80 95 08/31/19 07:32 08/31/19 07:32 08/31/19 07:32 08/31/19 07:32 08/31/19 07:32 Plan Activity: advance as tolerated, fall precautions Diet: low fat, diabetic Special Instructions: record daily weights, record daily BP diary, record blood sugar diary, physical therapy, occupational therapy, home health RN Follow up with: PRIMARY CARE, [Primary Care Provider] - 7 Days Prescriptions: Saccharomyces Boulardii [Florastor] 250 mg PO DAILY #14 capsule levoFLOXacin [Levaquin TAB] 500 mg PO QDAY #12 tablet
[2019-08-31] MEDS: LOSARTAN 50 MG TAB PO SCH (09:49)
[2019-08-31] MEDS: DOCUSATE SODIUM 100 MG CAP PO SCH (09:49)
[2019-08-31] MEDS: TAMSULOSIN 0.4 MG CAP PO SCH (09:49)
[2019-08-31 13:26] VITALS: BP 102/51
[2019-08-31] MEDS: LATANOPROST 0.005% OPHTH SOLN 2.5 ML OU SCH (17:31)
== END 2019-08-31 18:48 | disposition home health service (06) | DRG 871 ==
LOC: ED 13:00 → CC1 15:25 → 2B-ACE 08-29 10:06 → 3A 08-29 11:38 → 2B-ACE 08-29 12:47
PROVIDERS: ADMIT Internal Medicine; ATTEND Internal Medicine
DX: A41.51 Sepsis due to Escherichia coli [E. coli] (principal); E10.10 Type 1 diabetes mellitus with ketoacidosis without coma; G93.41 Metabolic encephalopathy; E87.0 Hyperosmolality and hypernatremia; N17.9 Acute kidney failure, unspecified; N39.0 Urinary tract infection, site not specified; N13.30 Unspecified hydronephrosis; F03.90 Unspecified dementia, unspecified severity, without behavioral disturbance, psychotic disturbance, mood disturbance, and anxiety; K59.00 Constipation, unspecified; Z79.4 Long term (current) use of insulin; Z85.46 Personal history of malignant neoplasm of prostate
CPT/HCPCS: 36415; 71045; 74177; 80048; 80053; 81001; 82010; 82140; 82805; 82962; 83735; 84100; 85007; 85025; 85027; 87040; 87076; 87086; 87186; 93005; 93010; 93306; G0378; J0360; J0610; J0692; J1644; J1815; J1956; J7030; J7040; Q9967

== ENCOUNTER 2019-10-04 20:15 | Emergency (ER) | payer MEDICARE ==
[2019-10-04 20:58] LABS: Basophils # (Auto) 0.1 K/mm3 (0.0-0.1); Basophils % (Auto) 1.7 % (0.0-1.8); Eosinophils # (Auto) 0.1 K/mm3 (0.0-0.4); Eosinophils % (Auto) 2.3 % (0.0-4.3); Hematocrit 35.8 % (35.5-45.6); Hemoglobin 11.9 gm/dl (11.8-15.2); Lymphocytes # (Auto) 0.7 K/mm3 (1.2-5.4); Mean Corpuscular HGB Conc 33 % (32-34); Mean Corpuscular Volume 92 fl (84-94); Monocytes # (Auto) 0.3 K/mm3 (0.0-0.8); Monocytes % (Auto) 6.4 % (0.0-7.3); Platelet Count 202 K/mm3 (140-440); Red Cell Distribution Width 15.3 % (13.2-15.2)
[2019-10-04 21:11] LABS: Alanine Aminotransferase 8 units/L (7-56); BUN/Creatinine Ratio 42; Blood Urea Nitrogen 42 mg/dL (9-20); Calcium 9.7 mg/dL (8.4-10.2); Hemolysis Index 6
[2019-10-04] MEDS ORDERED: INSULIN REGULAR, HUMAN 100 UNITS/1 ML IV ONE (21:18)
[2019-10-04] MEDS ORDERED: SODIUM CHLORIDE 0.9% 1000 ML 1,000 ML IV ONE (21:18)
--- NOTE | 2019-10-04 21:27 | Emergency Department Report ---
<SHAWN PIMENTEL - Last Filed: 10/05/19 02:12> ED General Adult HPI - General Chief complaint: Hyperglycemia Stated complaint: HYPERGLYCEMIA Time Seen by Provider: 10/04/19 20:23 Source: family, EMS Mode of arrival: Stretcher Limitations: Language Barrier, Altered Mental Status - History of Present Illness Initial comments: Patient is an 83-year-old male brought in by his family with complaints of elevated blood sugar. They state that his blood sugar was reading high on the meter at home. The relatives also states that he has had tremors in his upper extremities and seems slightly more confused than usual. The family denies any chest pain, shortness of breath, nausea, vomiting, diarrhea, fever, recent illness. Patient has been seen in the emergency department on a few occasions for similar symptoms. The family states that he lives at home with his who is also elderly. The family states that he controls his medications himself and they do not know which medications he is getting or not getting. Language interpretation by patient's family. Severity scale (0 -10): 0 - Related Data Previous Rx's Medication Instructions Recorded Last Taken Type Insulin Glargine,Hum.rec.anlog 20 unit SQ QHS #1 pen 08/21/13 Unknown Rx [Lantus Solostar] Insulin Lispro [HumaLOG VIAL] 5 unit SQ TIDAC #1 pen 08/21/13 Unknown Rx Losartan [Cozaar] 100 mg PO QDAY #30 tablet 08/21/13 Unknown Rx Saccharomyces Boulardii [Florastor] 250 mg PO DAILY #14 capsule 08/31/19 Unknown Rx levoFLOXacin [Levaquin TAB] 500 mg PO QDAY #12 tablet 08/31/19 Unknown Rx Ciprofloxacin HCl [Ciprofloxacin 500 mg PO Q12HR #14 tab 10/05/19 Unknown Rx TAB] Fluconazole [Diflucan TAB] 200 mg PO QDAY #1 tablet 10/05/19 Unknown Rx Allergies Allergy/AdvReac Type Severity Reaction Status Date / Time No Known Allergies Allergy Unverified 08/21/13 10:19 ED Review of Systems Comment: All other systems reviewed and negative ED Past Medical Hx - Past Medical History Previous Medical History?: Yes Hx Hypertension: Yes Hx Diabetes: Yes - Surgical History Past Surgical History?: No - Social History Smoking Status: Never Smoker - Medications Home Medications: Home Medications Medication Instructions Recorded Confirmed Last Taken Type Insulin Glargine,Hum.rec.anlog 20 unit SQ QHS #1 pen 08/21/13 08/28/19 Unknown Rx [Lantus Solostar] Insulin Lispro [HumaLOG VIAL] 5 unit SQ TIDAC #1 pen 08/21/13 08/28/19 Unknown Rx Losartan [Cozaar] 100 mg PO QDAY #30 tablet 08/21/13 08/28/19 Unknown Rx Saccharomyces Boulardii [Florastor] 250 mg PO DAILY #14 capsule 08/31/19 Unknown Rx levoFLOXacin [Levaquin TAB] 500 mg PO QDAY #12 tablet 08/31/19 Unknown Rx Ciprofloxacin HCl [Ciprofloxacin 500 mg PO Q12HR #14 tab 10/05/19 Unknown Rx TAB] Fluconazole [Diflucan TAB] 200 mg PO QDAY #1 tablet 10/05/19 Unknown Rx ED Physical Exam - General Limitations: Language Barrier, Altered Mental Status General appearance: alert - Head Head exam: Present: atraumatic, normocephalic - Eye Eye exam: Present: normal appearance, PERRL, EOMI - ENT ENT exam: Present: mucous membranes moist - Respiratory Respiratory exam: Present: normal lung sounds bilaterally. Absent: respiratory distress, wheezes, rales, rhonchi, stridor, chest wall tenderness, accessory muscle use, decreased breath sounds, prolonged expiratory - Cardiovascular Cardiovascular Exam: Present: regular rate, normal rhythm, normal heart sounds. Absent: systolic murmur, diastolic murmur, rubs, gallop - GI/Abdominal GI/Abdominal exam: Present: soft, normal bowel sounds. Absent: distended, tenderness, guarding, rebound, rigid - Neurological Exam Neurological exam: Present: alert - Skin Skin exam: Present: warm, dry, intact ED Medical Decision Making - Lab Data Result diagrams: 10/04/19 20:39 10/04/19 20:39 Lab Results 10/04/19 10/04/19 10/04/19 Range/Units 20:39 20:39 20:39 WBC 4.7 (4.5-11.0) K/mm3 RBC 3.90 (3.65-5.03) M/mm3 Hgb 11.9 (11.8-15.2) gm/dl Hct 35.8 (35.5-45.6) % MCV 92 (84-94) fl MCH 31 (28-32) pg MCHC 33 (32-34) % RDW 15.3 H (13.2-15.2) % Plt Count 202 (140-440) K/mm3 Lymph % (Auto) 16.0 (13.4-35.0) % [place] % (Auto) 6.4 (0.0-7.3) % Eos % (Auto) 2.3 (0.0-4.3) % Baso % (Auto) 1.7 (0.0-1.8) % Lymph # 0.7 L (1.2-5.4) K/mm3 Ulster # 0.3 (0.0-0.8) K/mm3 Eos # 0.1 (0.0-0.4) K/mm3 Baso # 0.1 (0.0-0.1) K/mm3 Seg Neutrophils % 73.6 H (40.0-70.0) % Seg Neutrophils # 3.4 (1.8-7.7) K/mm3 VBG pH 7.334 (7.320-7.420) Sodium 135 L (137-145) mmol/L Potassium 4.4 (3.6-5.0) mmol/L Chloride 93.1 L (98-107) mmol/L Carbon Dioxide 23 (22-30) mmol/L Anion Gap 23 mmol/L BUN 42 H (9-20) mg/dL Creatinine 1.0 (0.8-1.5) mg/dL Estimated GFR > 60 ml/min BUN/Creatinine Ratio 42 % Glucose 608 H* (75-100) mg/dL Calcium 9.7 (8.4-10.2) mg/dL Phosphorus 3.20 (2.5-4.5) mg/dL Magnesium 2.40 H (1.7-2.3) mg/dL Total Bilirubin 0.40 (0.1-1.2) mg/dL AST 11 (5-40) units/L ALT 8 (7-56) units/L Alkaline Phosphatase 97 (35-129) units/L Total Creatine Kinase 67 (55-170) units/L Troponin T (0.00-0.029) ng/mL Total Protein 7.8 (6.3-8.2) g/dL Albumin 4.0 (3.9-5) g/dL Albumin/Globulin Ratio 1.1 % Urine Color (Yellow) Urine Turbidity (Clear) Urine pH (5.0-7.0) Ur Specific [place] (1.003-1.030) Urine Protein (Negative) mg/dL Urine Glucose (UA) (Negative) mg/dL Urine Ketones (Negative) mg/dL Urine Blood (Negative) Urine Nitrite (Negative) Urine Bilirubin (Negative) Urine Urobilinogen (<2.0) mg/dL Ur Leukocyte Esterase (Negative) Urine WBC (Auto) (0.0-6.0) /HPF Urine RBC (Auto) (0.0-6.0) /HPF U Epithel Cells (Auto) (0-13.0) /HPF Urine Bacteria (Auto) (Negative) /HPF Urine Mucus /HPF Urine Yeast (Budding) /HPF 10/04/19 10/04/19 Range/Units 20:39 22:27 WBC (4.5-11.0) K/mm3 RBC (3.65-5.03) M/mm3 Hgb (11.8-15.2) gm/dl Hct (35.5-45.6) % MCV (84-94) fl MCH (28-32) pg MCHC (32-34) % RDW (13.2-15.2) % Plt Count (140-440) K/mm3 Lymph % (Auto) (13.4-35.0) % Ulster % (Auto) (0.0-7.3) % Eos % (Auto) (0.0-4.3) % Baso % (Auto) (0.0-1.8) % Lymph # (1.2-5.4) K/mm3 Ulster # (0.0-0.8) K/mm3 Eos # (0.0-0.4) K/mm3 Baso # (0.0-0.1) K/mm3 Seg Neutrophils % (40.0-70.0) % Seg Neutrophils # (1.8-7.7) K/mm3 VBG pH (7.320-7.420) Sodium (137-145) mmol/L Potassium (3.6-5.0) mmol/L Chloride (98-107) mmol/L Carbon Dioxide (22-30) mmol/L Anion Gap mmol/L BUN (9-20) mg/dL Creatinine (0.8-1.5) mg/dL Estimated GFR ml/min BUN/Creatinine Ratio % Glucose (75-100) mg/dL Calcium (8.4-10.2) mg/dL Phosphorus (2.5-4.5) mg/dL Magnesium (1.7-2.3) mg/dL Total Bilirubin (0.1-1.2) mg/dL AST (5-40) units/L ALT (7-56) units/L Alkaline Phosphatase (35-129) units/L Total Creatine Kinase (55-170) units/L Troponin T < 0.010 (0.00-0.029) ng/mL Total Protein (6.3-8.2) g/dL Albumin (3.9-5) g/dL Albumin/Globulin Ratio % Urine Color Colorless (Yellow) Urine Turbidity Clear (Clear) Urine pH 5.0 (5.0-7.0) Ur Specific [place] 1.020 (1.003-1.030) Urine Protein <15 mg/dl (Negative) mg/dL Urine Glucose (UA) >=500 (Negative) mg/dL Urine Ketones 20 (Negative) mg/dL Urine Blood Sm (Negative) Urine Nitrite Neg (Negative) Urine Bilirubin Neg (Negative) Urine Urobilinogen < 2.0 (<2.0) mg/dL Ur Leukocyte Esterase Tr (Negative) Urine WBC (Auto) 12.0 H (0.0-6.0) /HPF Urine RBC (Auto) 21.0 (0.0-6.0) /HPF U Epithel Cells (Auto) < 1.0 (0-13.0) /HPF Urine Bacteria (Auto) 1+ (Negative) /HPF Urine Mucus Few /HPF Urine Yeast (Budding) 1+ /HPF - EKG Data EKG shows normal: sinus rhythm, axis, intervals, QRS complexes Rate: normal - EKG Data 10/04/19 21:27 non specific T wave changes no STEMI - Medical Decision Making Patient is an 83-year-old male brought in by his family with complaints of elevated blood sugar. They state that his blood sugar was reading high on the meter at home. The relatives also states that he has had tremors in his upper extremities and seems slightly more confused than usual. The family denies any chest pain, shortness of breath, nausea, vomiting, diarrhea, fever, recent illness. Patient has been seen in the emergency department on a few occasions for similar symptoms. The family states that he lives at home with his who is also elderly. The family states that he controls his medications himself and they do not know which medications he is getting or not getting. Language interpretation by patient's family. Vitals with elevated blood pressure, patient's family is unsure if he is taking his medications or not Labs significant for glucose of 608, venous pH is normal, electrolytes are stable, anion gap is stable, UA shows UTI, yeast also present in urine Patient given 1 L of fluids, 10 units of insulin, Keflex, fluconazole, and losartan Blood glucose improved to 300 per nursing staff There is concern that patient is not getting adequate care at home and is unable to care for himself He has had multiple ER visits due to elevated blood glucose most likely secondary to patient not taking his medications appropriately Case management consult ordered for possible home health versus placement in a facility ED Disposition Clinical Impression: Advance care planning, Yeast cystitis Uncontrolled diabetes mellitus with hyperglycemia Qualifiers: Diabetes mellitus type: type 2 Qualified Code(s): E11.65 - Type 2 diabetes mellitus with hyperglycemia Disposition: - TO HOME OR SELFCARE Condition: Stable Instructions: Diabetes Mellitus Type 2 in Adults (ED), Urinary Tract Infection in Men (ED) Prescriptions: Ciprofloxacin HCl [Ciprofloxacin TAB] 500 mg PO Q12HR #14 tab Fluconazole [Diflucan TAB] 200 mg PO QDAY #1 tablet Referrals: DALJIT HALEY [Other] - 3-5 Days <ALAN MACHADO - Last Filed: 10/05/19 14:47> ED Review of Systems ROS: Stated complaint: HYPERGLYCEMIA Other details as noted in HPI ED Course Vital Signs 10/04/19 10/04/19 10/04/19 20:35 22:27 22:41 Temperature 97.0 F L Pulse Rate 86 Respiratory 20 18 Rate Blood Pressure Blood Pressure 187/96 [Right] O2 Sat by Pulse 96 Oximetry 10/05/19 10/05/19 10/05/19 00:13 00:30 01:01 Temperature Pulse Rate 72 71 75 Respiratory 18 15 16 Rate Blood Pressure 131/68 176/83 Blood Pressure 133/62 [Right] O2 Sat by Pulse 98 98 99 Oximetry 10/05/19 01:30 Temperature Pulse Rate 75 Respiratory 16 Rate Blood Pressure 187/88 Blood Pressure [Right] O2 Sat by Pulse 98 Oximetry ED Medical Decision Making - Lab Data Result diagrams: 10/04/19 20:39 10/05/19 11:07 Lab Results 10/04/19 10/04/19 10/04/19 Range/Units 20:39 20:39 20:39 WBC 4.7 (4.5-11.0) K/mm3 RBC 3.90 (3.65-5.03) M/mm3 Hgb 11.9 (11.8-15.2) gm/dl Hct 35.8 (35.5-45.6) % MCV 92 (84-94) fl MCH 31 (28-32) pg MCHC 33 (32-34) % RDW 15.3 H (13.2-15.2) % Plt Count 202 (140-440) K/mm3 Lymph % (Auto) 16.0 (13.4-35.0) % [place] % (Auto) 6.4 (0.0-7.3) % Eos % (Auto) 2.3 (0.0-4.3) % Baso % (Auto) 1.7 (0.0-1.8) % Lymph # 0.7 L (1.2-5.4) K/mm3 Ulster # 0.3 (0.0-0.8) K/mm3 Eos # 0.1 (0.0-0.4) K/mm3 Baso # 0.1 (0.0-0.1) K/mm3 Seg Neutrophils % 73.6 H (40.0-70.0) % Seg Neutrophils # 3.4 (1.8-7.7) K/mm3 VBG pH 7.334 (7.320-7.420) Sodium 135 L (137-145) mmol/L Potassium 4.4 (3.6-5.0) mmol/L Chloride 93.1 L (98-107) mmol/L Carbon Dioxide 23 (22-30) mmol/L Anion Gap 23 mmol/L BUN 42 H (9-20) mg/dL Creatinine 1.0 (0.8-1.5) mg/dL Estimated GFR > 60 ml/min BUN/Creatinine Ratio 42 % Glucose 608 H* (75-100) mg/dL POC Glucose (70-105) Calcium 9.7 (8.4-10.2) mg/dL Phosphorus 3.20 (2.5-4.5) mg/dL Magnesium 2.40 H (1.7-2.3) mg/dL Total Bilirubin 0.40 (0.1-1.2) mg/dL AST 11 (5-40) units/L ALT 8 (7-56) units/L Alkaline Phosphatase 97 (35-129) units/L Total Creatine Kinase 67 (55-170) units/L Troponin T (0.00-0.029) ng/mL Total Protein 7.8 (6.3-8.2) g/dL Albumin 4.0 (3.9-5) g/dL Albumin/Globulin Ratio 1.1 % Urine Color (Yellow) Urine Turbidity (Clear) Urine pH (5.0-7.0) Ur Specific [place] (1.003-1.030) Urine Protein (Negative) mg/dL Urine Glucose (UA) (Negative) mg/dL Urine Ketones (Negative) mg/dL Urine Blood (Negative) Urine Nitrite (Negative) Urine Bilirubin (Negative) Urine Urobilinogen (<2.0) mg/dL Ur Leukocyte Esterase (Negative) Urine WBC (Auto) (0.0-6.0) /HPF Urine RBC (Auto) (0.0-6.0) /HPF U Epithel Cells (Auto) (0-13.0) /HPF Urine Bacteria (Auto) (Negative) /HPF Urine Mucus /HPF Urine Yeast (Budding) /HPF 10/04/19 10/04/19 10/05/19 Range/Units 20:39 22:27 00:05 WBC (4.5-11.0) K/mm3 RBC (3.65-5.03) M/mm3 Hgb (11.8-15.2) gm/dl Hct (35.5-45.6) % MCV (84-94) fl MCH (28-32) pg MCHC (32-34) % RDW (13.2-15.2) % Plt Count (140-440) K/mm3 Lymph % (Auto) (13.4-35.0) % [place] % (Auto) (0.0-7.3) % Eos % (Auto) (0.0-4.3) % Baso % (Auto) (0.0-1.8) % Lymph # (1.2-5.4) K/mm3 [place] # (0.0-0.8) K/mm3 Eos # (0.0-0.4) K/mm3 Baso # (0.0-0.1) K/mm3 Seg Neutrophils % (40.0-70.0) % Seg Neutrophils # (1.8-7.7) K/mm3 VBG pH (7.320-7.420) Sodium (137-145) mmol/L Potassium (3.6-5.0) mmol/L Chloride (98-107) mmol/L Carbon Dioxide (22-30) mmol/L Anion Gap mmol/L BUN (9-20) mg/dL Creatinine (0.8-1.5) mg/dL Estimated GFR ml/min BUN/Creatinine Ratio % Glucose (75-100) mg/dL POC Glucose 305 H (70-105) Calcium (8.4-10.2) mg/dL Phosphorus (2.5-4.5) mg/dL Magnesium (1.7-2.3) mg/dL Total Bilirubin (0.1-1.2) mg/dL AST (5-40) units/L ALT (7-56) units/L Alkaline Phosphatase (35-129) units/L Total Creatine Kinase (55-170) units/L Troponin T < 0.010 (0.00-0.029) ng/mL Total Protein (6.3-8.2) g/dL Albumin (3.9-5) g/dL Albumin/Globulin Ratio % Urine Color Colorless (Yellow) Urine Turbidity Clear (Clear) Urine pH 5.0 (5.0-7.0) Ur Specific [place] 1.020 (1.003-1.030) Urine Protein <15 mg/dl (Negative) mg/dL Urine Glucose (UA) >=500 (Negative) mg/dL Urine Ketones 20 (Negative) mg/dL Urine Blood Sm (Negative) Urine Nitrite Neg (Negative) Urine Bilirubin Neg (Negative) Urine Urobilinogen < 2.0 (<2.0) mg/dL Ur Leukocyte Esterase Tr (Negative) Urine WBC (Auto) 12.0 H (0.0-6.0) /HPF Urine RBC (Auto) 21.0 (0.0-6.0) /HPF U Epithel Cells (Auto) < 1.0 (0-13.0) /HPF Urine Bacteria (Auto) 1+ (Negative) /HPF Urine Mucus Few /HPF Urine Yeast (Budding) 1+ /HPF 10/05/19 10/05/19 10/05/19 Range/Units 09:51 11:07 13:00 WBC (4.5-11.0) K/mm3 RBC (3.65-5.03) M/mm3 Hgb (11.8-15.2) gm/dl Hct (35.5-45.6) % MCV (84-94) fl MCH (28-32) pg MCHC (32-34) % RDW (13.2-15.2) % Plt Count (140-440) K/mm3 Lymph % (Auto) (13.4-35.0) % [place] % (Auto) (0.0-7.3) % Eos % (Auto) (0.0-4.3) % Baso % (Auto) (0.0-1.8) % Lymph # (1.2-5.4) K/mm3 [place] # (0.0-0.8) K/mm3 Eos # (0.0-0.4) K/mm3 Baso # (0.0-0.1) K/mm3 Seg Neutrophils % (40.0-70.0) % Seg Neutrophils # (1.8-7.7) K/mm3 VBG pH (7.320-7.420) Sodium 135 L (137-145) mmol/L Potassium 4.6 (3.6-5.0) mmol/L Chloride 94.0 L (98-107) mmol/L Carbon Dioxide 22 (22-30) mmol/L Anion Gap 24 mmol/L BUN 25 H (9-20) mg/dL Creatinine 0.7 L (0.8-1.5) mg/dL Estimated GFR > 60 ml/min BUN/Creatinine Ratio 36 % Glucose 392 H (75-100) mg/dL POC Glucose 325 H 377 H (70-105) Calcium 8.9 (8.4-10.2) mg/dL Phosphorus (2.5-4.5) mg/dL Magnesium (1.7-2.3) mg/dL Total Bilirubin (0.1-1.2) mg/dL AST (5-40) units/L ALT (7-56) units/L Alkaline Phosphatase (35-129) units/L Total Creatine Kinase (55-170) units/L Troponin T (0.00-0.029) ng/mL Total Protein (6.3-8.2) g/dL Albumin (3.9-5) g/dL Albumin/Globulin Ratio % Urine Color (Yellow) Urine Turbidity (Clear) Urine pH (5.0-7.0) Ur Specific [place] (1.003-1.030) Urine Protein (Negative) mg/dL Urine Glucose (UA) (Negative) mg/dL Urine Ketones (Negative) mg/dL Urine Blood (Negative) Urine Nitrite (Negative) Urine Bilirubin (Negative) Urine Urobilinogen (<2.0) mg/dL Ur Leukocyte Esterase (Negative) Urine WBC (Auto) (0.0-6.0) /HPF Urine RBC (Auto) (0.0-6.0) /HPF U Epithel Cells (Auto) (0-13.0) /HPF Urine Bacteria (Auto) (Negative) /HPF Urine Mucus /HPF Urine Yeast (Budding) /HPF - Medical Decision Making Patient was found not to be in DKA during this visit. Patient was able to be seen by our social work provider. Home health has been set up and the patient will have a skilled nurse come to the home to help his administer medications. Patient stable for discharge at this time. Critical care attestation.: If time is entered above; I have spent that time in minutes in the direct care of this critically ill patient, excluding procedure time. ED Disposition Is pt being admited?: No Does the pt Need Aspirin: No Time of Disposition: 14:45
--- NOTE | 2019-10-04 21:39 | Cat Scan Report ---
CT BRAIN: WITHOUT CONTRAST INDICATION / CLINICAL INFORMATION: 83-year-old male with. Confusion.. COMPARISON: 08/21/2019 FINDINGS: BRAIN/INTRACRANIAL STRUCTURES: Unenhanced CT images of the brain were obtained and compared to the re cent prior exam from 08/21/2019. Again seen is diffuse age-related atrophic changes and chronic white matter hypoattenuation. There is no evidence of acute ischemic injury, parenchymal hemorrhage, or mass. When compared to the prior exam, there has been interval development of bilateral frontal hypodense s ubdural collections, consistent with subdural hygroma. There is no evidence of acute hyperdense blood products. These collections have a maximum thickness of approximately 6-7 mm bilaterally. EXTRACRANIAL STRUCTURES: Unremarkable. IMPRESSION: 1. Chronic and age-related changes. 2. Small bilateral frontal subdural hygroma, which have developed in the interval since the recent pr ior exam of 08/21/2019. There is no evidence of significant mass effect. All CT scans at this location are performed using dose reduction to ALARA by means of automated expos ure control. Signer Name: Tam Schneider MD Signed: 10/04/2019 9:35 PM Workstation Name: [id number]
[2019-10-04 22:45] LABS: Bacteria,Urine 1+ /HPF (Negative); Bilirubin,Urine NEG (Negative); Blood,Urine SM (Negative); Color,Urine Colorless (Yellow); Mucus,Urine FEW /HPF; Protein,Urine <15 mg/dL mg/dL (Negative); Urobilinogen,Urine < 2.0 mg/dL (<2.0)
[2019-10-04] MEDS ORDERED: cephALEXin 500 MG CAP PO ONE (22:50)
[2019-10-04] MEDS ORDERED: FLUCONAZOLE 100 MG TAB PO ONE (22:50)
[2019-10-05] MEDS ORDERED: DEXTROSE 50% IN WATER (25GM) 50 ML SYRINGE IV PRN (01:00)
[2019-10-05] MEDS ORDERED: cephALEXin 500 MG CAP ONE (01:20)
[2019-10-05] MEDS ORDERED: LOSARTAN 50 MG TAB PO ONE (01:35)
[2019-10-05] MEDS ORDERED: SACCHAROMYCES BOULARDII 250 MG PO SCH (10:00)
[2019-10-05] MEDS ORDERED: levoFLOXacin 500 MG TAB PO SCH (10:00)
[2019-10-05] MEDS ORDERED: INSULIN LISPRO 100 UNIT/ML SUB-Q SCH (11:30)
[2019-10-05 12:28] LABS: BUN/Creatinine Ratio 36; Blood Urea Nitrogen 25 mg/dL (9-20); Calcium 8.9 mg/dL (8.4-10.2); Hemolysis Index 17
[2019-10-05 15:03] VITALS: BP 115/56
[2019-10-05] MEDS ORDERED: INSULIN GLARGINE 100 UNITS/ML SUB-Q SCH (22:00)
[2019-10-05] MEDS ORDERED: INSULIN GLARGINE HUM REC ANLOG 20 UNIT SQ SCH (22:00)
[2019-10-06] MEDS ORDERED: LOSARTAN 50 MG TAB PO SCH (10:00)
== END 2019-10-05 15:20 | disposition home or self-care (01) ==
LOC: ED 20:15
DX: E11.65 Type 2 diabetes mellitus with hyperglycemia (principal); N30.90 Cystitis, unspecified without hematuria
CPT/HCPCS: 36415; 70450; 80048; 80053; 81001; 82550; 82805; 82962; 83735; 84100; 84484; 85025; 87086; 93005; 93010; 96361; 96374; 99285; J7030; J1815

== ENCOUNTER 2019-11-08 13:01 | Emergency (ER) | payer MEDICARE ==
[2019-11-08] MEDS ORDERED: SODIUM CHLORIDE 0.9% 1000 ML 1,000 ML IV ONE (13:23)
[2019-11-08 13:52] LABS: Eosinophils # (Auto) 0.1 K/mm3 (0.0-0.4); Eosinophils % (Auto) 1.8 % (0.0-4.3); Hematocrit 34.6 % (35.5-45.6); Hemoglobin 11.6 gm/dl (11.8-15.2); Lymphocytes # (Auto) 0.9 K/mm3 (1.2-5.4); Lymphocytes % (Auto) 24.1 % (13.4-35.0); Mean Corpuscular HGB Conc 33 % (32-34); Mean Corpuscular Volume 93 fl (84-94); Monocytes # (Auto) 0.3 K/mm3 (0.0-0.8); Monocytes % (Auto) 7.7 % (0.0-7.3); Platelet Count 215 K/mm3 (140-440); Red Cell Distribution Width 15.2 % (13.2-15.2)
[2019-11-08] MEDS ORDERED: LIDOCAINE 1%/EPINEPHRINE 1:100,000 VIAL (20 ML) INFILTRATI NR (14:00)
--- NOTE | 2019-11-08 14:05 | Cat Scan Report ---
CT head/brain wo con INDICATION / CLINICAL INFORMATION: 83 years Male; closed head injury. TECHNIQUE: Routine CT head without contrast. All CT scans at this location are performed using CT dos e reduction for ALARA by means of automated exposure control. COMPARISON: 10/30/2019 FINDINGS: BRAIN / INTRACRANIAL CONTENTS: Bilateral subdural collections identified-left more prominent than rig ht. These findings were seen on prior and appear to be late subacute to chronic in age. There is mild , asymmetric mass effect on the left cerebral hemisphere. Because of cerebral atrophy, there is no si gnificant midline shift. No signs of acute hemorrhage. Otherwise, no acute hemorrhage, mass effect, midline shift, hydrocephalus, or acute, large territori al infarct. Mild to moderate cerebral and cerebellar atrophy. Mild degree of hippocampal atrophy suggested bilate rally. There are mild to moderate areas of decreased attenuation in the white matter of the cerebral hemisph eres. These are nonspecific findings and may be related to microangiopathy (hypertension, diabetes, a therosclerosis), given the patient's age. It might be difficult to evaluate for small areas of ischem ia without diffusion imaging by MRI. CRANIOCERVICAL JUNCTION: No significant abnormality. ORBITS: No significant abnormality of visualized orbits. SINUSES / MASTOIDS: Mild mucosal thickening seen in the ethmoids. ADDITIONAL FINDINGS: Atherosclerotic disease is seen in the anterior and posterior circulation. Subcutaneous soft tissue swelling seen in the right periorbital region. No signs of underlying calvar ial fracture appreciated. IMPRESSION: 1. Small, late subacute to chronic, subdural collections as described above. 2. Otherwise, no focal mass, hemorrhage, hydrocephalus, or acute, large territorial infarct. Signer Name: Alphonso Kinney MD, III Signed: 11/08/2019 2:01 PM Workstation Name: [id number]
[2019-11-08 14:10] LABS: BUN/Creatinine Ratio 30; Blood Urea Nitrogen 24 mg/dL (9-20); Calcium 9.4 mg/dL (8.4-10.2); Hemolysis Index 12
[2019-11-08] MEDS ORDERED: NEOMY 3.5 MG/BACIT 400 UNITS/POLY B 5000 UNITS/GM OINT PACKET TP ONE (14:51)
[2019-11-08] MEDS ORDERED: NEOMY 3.5 MG/BACIT 400 UNITS/POLY B 5000 UNITS/GM OINT PACKET TP SCH (15:00)
--- NOTE | 2019-11-08 15:00 | Emergency Department Report ---
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 He denies any loss of consciousness. States he does have a headache and feels as though occasionally he has trouble finding his words but he denies any arm or leg weakness at this time. He does remember tripping before falling and was not complaining of any weakness. ED General PMH - Social History Smoking Status: Unknown if ever smoked Head Injury W/O Lac Exam - Exam General: Vital signs noted. No distress. Alert and acting appropriately. Head: Yes Pupils are PERRL, Yes Laceration (Patient with a 3 cm laceration of the right eyebrow), No Hemotympanum, No Hematoma/Ecchymosis, No Epistaxis, No Stepoff/Deformity, No Abrasion Chest, Abd, & Ext: Yes Clear Lung Sounds, Yes Regular Heart Rhythm, No Neck Pain, No Chest Injury/Pain, No Heart Murmur, No Abdominal Tenderness, No Back Tenderness, No Extremity Injury Neuroligical (Head Inj W/O Lac: Yes Normal Speech, Yes Normal Gait, No Lethargy, No Disorientation, No Focal Numbness, No Focal Weakness - Laceration /Wound Repair Right Face Wound Location: face (At the right eyebrow) Wound Length (cm): 3 Wound's Depth, Shape: linear Wound Explored: clean Irrigated w/ Saline (ccs): 100 Betadine Prep?: Yes Anesthesia: Lidocaine w/ Epi Volume Anesthetic (ccs): 6 Wound Repaired With: sutures Suture Size/Type: 5:0, nylon Number of Sutures: 11 (Running stitches) Layer Closure?: No Progress: Patient tolerated procedure well and there was good approximation of the wound ED Critical Care Note - Critical Care Note Comments: Patient is a 83-year-old [place] gentleman who suffered a fall with head injury. Patient appears well and is alert and oriented x3. He has normal forgetfulness associated with age. Patient was found to have an elevated blood glucose and was given normal saline. Laboratory studies show that patient is not in DKA at this time patient does have his insulin but has not taken it. Patient was sutured and sutures can be removed in 1 week. ED Disposition Clinical Impression: Facial laceration, Closed head injury, Hyperglycemia Disposition: DC-01 TO HOME OR SELFCARE Is pt being admited?: No Does the pt Need Aspirin: No Condition: Stable Instructions: Laceration (ED), Suture Care (ED), Minor Head Injury (ED) Additional Instructions: Your sutures will need to be removed in 1 week Referrals: PRIMARY CARE [Primary Care Provider] - 3-5 Days Time of Disposition: 15:02
[2019-11-08 16:11] VITALS: BP 179/96
[2019-11-08] MEDS ORDERED: NEOMY 3.5 MG/BACIT 400 UNITS/POLY B 5000 UNITS OINT 15 GM TP SCH (20:00)
== END 2019-11-08 16:12 | disposition home or self-care (01) ==
LOC: ED 13:01
DX: S01.111A Laceration without foreign body of right eyelid and periocular area, initial encounter (principal); E11.65 Type 2 diabetes mellitus with hyperglycemia; W01.0XXA Fall on same level from slipping, tripping and stumbling without subsequent striking against object, initial encounter; Y93.89 Activity, other specified; Y92.89 Other specified places as the place of occurrence of the external cause; Y99.8 Other external cause status
CPT/HCPCS: 12013; 36415; 70450; 80048; 85025; 96360; 96361; 99284; J7030; A6250